=== PATIENT | female | born 1950 | race Caucasian/White ===

== ENCOUNTER → 2017-01-05 | Outpatient (CLI) | payer OTHER ==
--- NOTE | 2017-01-08 09:12 | MM ---
Reason for exam: screening (asymptomatic). Last mammogram was performed 1 year ago. History: Patient is postmenopausal. Benign cyst aspiration of the left breast, 1989. 2 benign cyst aspirations of the right breast. Taking estrogen for 12 years beginning at age 48. Taking progesterone for 12 years beginning at age 48. Physical Findings: A clinical breast exam by your physician is recommended on an annual basis and results should be correlated with mammographic findings. MG Screening Mammo w CAD Bilateral CC and MLO view(s) were taken. Prior study comparison: January 04, 2016, bilateral MG screening mammo w CAD. December 14, 2014, bilateral MG screening mammo w CAD. The breast tissue is heterogeneously dense. This may lower the sensitivity of mammography. Finding: There are stable grouped/clustered calcifications in the left breast. No significant changes in finding since January 04, 2016 and December 14, 2014. ASSESSMENT: Benign, BI-RAD 2 RECOMMENDATION: Routine screening mammogram of both breasts in 1 year.
== END | disposition home or self-care (01) ==
LOC: RADMAMWWP 12:58
PROVIDERS: ATTEND Obstetrics & Gynecology
DX: Z12.31 Encounter for screening mammogram for malignant neoplasm of breast (principal)

== ENCOUNTER → 2017-04-03 | Outpatient (CLI) | payer MEDICARE ==
[2017-04-03 11:09] LABS: ALT 22 U/L (9-52); AST 20 U/L (14-36); Alkaline Phosphatase 90 U/L (38-126); Anion Gap 10 mmol/L; Blood Urea Nitrogen 11 mg/dL (7-17); Calcium 9.2 mg/dL (8.4-10.2); Carbon Dioxide 23 mmol/L (22-30); Chloride 109 mmol/L (98-107); Cholesterol 199 mg/dL (<200); Glucose 109 mg/dL (74-99); HDL Cholesterol 57 mg/dL (40-60); Non-African American GFR(MDRD) >60 (>60 ml/min/1.73 sqM); Potassium 4.1 mmol/L (3.5-5.1); Sodium 142 mmol/L (137-145); Total Bilirubin 0.5 mg/dL (0.2-1.3); Total Protein 7.6 g/dL (6.3-8.2); Triglycerides 213 mg/dL (<150)
== END | disposition home or self-care (01) ==
LOC: LABWHC1 10:22
PROVIDERS: ATTEND Internal Medicine Endocrinology, Diabetes & Metabolism
DX: R73.09 Other abnormal glucose (principal); E03.9 Hypothyroidism, unspecified; E78.2 Mixed hyperlipidemia
CPT/HCPCS: 36415; 80053; 80061; 84439; 84443

== ENCOUNTER → 2017-04-09 | Outpatient (CLI) | payer OTHER ==
--- NOTE | 2017-04-10 01:00 | BD ---
EXAMINATION TYPE: MG DEXA axial skeleton. DATE OF EXAM: 04/09/2017 12:58 PM COMPARISON: NONE CLINICAL HISTORY: 67-year-old female postmenopausal screening Height: 64.7 IN Weight: 175 LBS FRAX RISK QUESTIONS: Alcohol (3 or more units per day): NO Family History (Parent hip fracture): NO Glucocorticoids (More than 3mos): NO (Ex: prednisone, prednisolone, methylprednisolone, dexamethasone, and hydrocortisone). History of Fracture in Adulthood: NO Secondary Osteoporosis: 1. Type 1 Diabetes: NO 2. Hyperthyroidism: NO 3. Menopause before 45: NO AGE 47 4. Malnutrition: NO 5. Chronic liver disease: NO Rheumatoid Arthritis: NO Current Tobacco Use: OCCASIONAL RISK FACTORS HISTORY OF: Smoke tobacco: OCCASIONAL Active: YES Diet low in dairy products/other sources of calcium: YES Postmenopausal woman: AGE 47 Take estrogen and/or progesterone medications: YES How long: SINCE AGE 47 MEDICATIONS: Thyroid Medications: YES Which medication: Synthroid How Lon + YRS Additional Medications: PREMPRO, SYNTHROID, CRESTOR, EXAM MEASUREMENTS: Bone mineral densitometry was performed using the [employer]. Bone mineral density as measured about the Lumbar spine is: ----- L1-L4(G/cm2): 1.299 T Score Values are as follows: ----- L2: 0.0 ----- L3: 1.6 ----- L4: 2.4 ----- L1-L4: 1.0 Bone mineral density BASELINE Bone mineral density about the R hip (g/cm2): 1.000 Bone mineral density about the L hip (g/cm2): 0.973 T Score values are as follows: -----R Neck: -0.3 -----L Neck: -0.5 -----R Total: 0.5 -----L Total: -0.1 Bone mineral density BASELINE IMPRESSION: Normal (Values between +1 and -1 indicate normal bone mass). Consider repeating this study in 5 year s or sooner if there is some new clinical indication. NOTE: T-SCORE=SD OF THE YOUNG ADULT MEAN.
== END | disposition home or self-care (01) ==
LOC: RADBDWWP 12:55
PROVIDERS: ATTEND Obstetrics & Gynecology
DX: N95.1 Menopausal and female climacteric states (principal)
CPT/HCPCS: 77080

== ENCOUNTER → 2018-03-07 | Outpatient (CLI) | payer MEDICARE ==
--- NOTE | 2018-03-08 09:59 | MM ---
Reason for exam: screening (asymptomatic). Last mammogram was performed 1 year and 2 months ago. History: Patient is postmenopausal. Benign cyst aspiration of the left breast, 1989. 2 benign cyst aspirations of the right breast. Taking estrogen for 12 years beginning at age 48. Taking progesterone for 12 years beginning at age 48. Physical Findings: A clinical breast exam by your physician is recommended on an annual basis and results should be correlated with mammographic findings. MG Screening Mammo w CAD Bilateral CC and MLO view(s) were taken. Prior study comparison: January 05, 2017, bilateral MG screening mammo w CAD. January 04, 2016, bilateral MG screening mammo w CAD. The breast tissue is heterogeneously dense. This may lower the sensitivity of mammography. Stable benign calcifications. There is no discrete abnormality. No significant changes when compared with prior studies. ASSESSMENT: Benign, BI-RAD 2 RECOMMENDATION: Routine screening mammogram of both breasts in 1 year.
== END | disposition home or self-care (01) ==
LOC: RADMAMWWP 16:52
PROVIDERS: ATTEND Obstetrics & Gynecology
DX: Z12.31 Encounter for screening mammogram for malignant neoplasm of breast (principal)
CPT/HCPCS: 77067

== ENCOUNTER → 2018-03-27 | Outpatient (CLI) | payer MEDICARE ==
[2018-03-27 11:32] LABS: Anion Gap 13 mmol/L; Blood Urea Nitrogen 15 mg/dL (7-17); Calcium 9.5 mg/dL (8.4-10.2); Carbon Dioxide 23 mmol/L (22-30); Chloride 107 mmol/L (98-107); Cholesterol 193 mg/dL (<200); Glucose 97 mg/dL (74-99); HDL Cholesterol 57 mg/dL (40-60); LDL Cholesterol,Calculated 101 mg/dL (0-99); Potassium 4.5 mmol/L (3.5-5.1); Sodium 143 mmol/L (137-145); Triglycerides 175 mg/dL (<150)
[2018-03-27 11:43] LABS: T4, Free (Free Thyroxine) 1.22 ng/dL (0.78-2.19)
[2018-03-27 18:48] LABS: Hemoglobin A1C 5.6 % (4.0-6.0)
== END ==
LOC: LABWHC1 10:36
PROVIDERS: ATTEND Internal Medicine Endocrinology, Diabetes & Metabolism
DX: E78.2 Mixed hyperlipidemia (principal); E03.9 Hypothyroidism, unspecified
CPT/HCPCS: 36415; 80048; 80061; 82607; 83036; 84439; 84443

== ENCOUNTER → 2019-03-10 | Outpatient (CLI) | payer MEDICARE ==
--- NOTE | 2019-03-12 14:40 | MM ---
Reason for exam: screening (asymptomatic). Last mammogram was performed 1 year ago. History: Patient is postmenopausal. Benign cyst aspiration of the left breast, 1989. 2 benign cyst aspirations of the right breast. Taking estrogen for 12 years beginning at age 48. Taking progesterone for 12 years beginning at age 48. Physical Findings: A clinical breast exam by your physician is recommended on an annual basis and results should be correlated with mammographic findings. MG Screening Mammo w CAD Bilateral CC and MLO view(s) were taken. Prior study comparison: March 07, 2018, bilateral MG screening mammo w CAD. January 05, 2017, bilateral MG screening mammo w CAD. The breast tissue is heterogeneously dense. This may lower the sensitivity of mammography. No significant changes when compared with prior studies. ASSESSMENT: Benign, BI-RAD 2 RECOMMENDATION: Routine screening mammogram of both breasts in 1 year.
== END ==
LOC: RADMAMWWP 11:36
PROVIDERS: ATTEND Obstetrics & Gynecology
DX: Z12.31 Encounter for screening mammogram for malignant neoplasm of breast (principal)
CPT/HCPCS: 77067

== ENCOUNTER → 2019-06-23 | Outpatient (CLI) | payer MEDICARE ==
[2019-06-23 17:49] LABS: Hemoglobin A1C 6.3 % (4.0-6.0)
[2019-06-23 18:15] LABS: African American GFR (CKD) 103.9 (60.0-200.0); Anion Gap 10.6 mmol/L (4.00-12.00); BUN/Creat Ratio 12.86 Ratio (12.00-20.00); Calcium 9.1 mg/dL (8.7-10.3); Carbon Dioxide 22.4 mmol/L (21.6-31.8); LDL Cholesterol,Calculated 111.6 mg/dL (0.0-131.0); Potassium 4.8 mmol/L (3.5-5.5); VLDL Calculation 40.4 mg/dL (5.00-40.00)
[2019-06-23 18:22] LABS: T4, Free (Free Thyroxine) 1.2 ng/dL (0.80-1.80)
== END | disposition home or self-care (01) ==
LOC: LABWHC1 07:33
PROVIDERS: ATTEND Internal Medicine Endocrinology, Diabetes & Metabolism
DX: E78.2 Mixed hyperlipidemia (principal); E03.9 Hypothyroidism, unspecified; R73.03 Prediabetes
CPT/HCPCS: 36415; 80048; 80061; 82607; 83036; 84439; 84443

== ENCOUNTER → 2020-06-30 | Outpatient (CLI) | payer MEDICARE ==
[2020-06-30 19:49] LABS: Chol/HDL Ratio 4.3; LDL Cholesterol,Calculated 108.6 mg/dL (0.0-131.0); VLDL Calculation 56.4 mg/dL (5.00-40.00)
[2020-06-30 19:56] LABS: T4, Free (Free Thyroxine) 1.2 ng/dL (0.80-1.80)
== END | disposition home or self-care (01) ==
LOC: LABWHC1 09:45
PROVIDERS: ATTEND Internal Medicine
DX: E03.9 Hypothyroidism, unspecified (principal); E78.2 Mixed hyperlipidemia; R73.03 Prediabetes
CPT/HCPCS: 36415; 80061; 83036; 84439; 84443

== ENCOUNTER → 2020-08-05 | Outpatient (CLI) | payer MEDICARE ==
--- NOTE | 2020-08-06 12:08 | MM ---
Reason for exam: screening (asymptomatic). Last mammogram was performed 1 year and 5 months ago. History: Patient is postmenopausal. Benign cyst aspiration of the left breast, 1989. 2 benign cyst aspirations of the right breast. Taking estrogen for 12 years beginning at age 48. Taking progesterone for 12 years beginning at age 48. Physical Findings: A clinical breast exam by your physician is recommended on an annual basis and results should be correlated with mammographic findings. MG 3D Screening Mammo W/Cad Bilateral CC and MLO view(s) were taken. Prior study comparison: March 10, 2019, bilateral MG screening mammo w CAD. March 07, 2018, bilateral MG screening mammo w CAD. The breast tissue is heterogeneously dense. This may lower the sensitivity of mammography. Stable benign calcifications. Increasing nodule 12 o'clock right breast anterior third position. This finding is changed when compared with previous exams. ASSESSMENT: Incomplete: need additional imaging evaluation, BI-RAD 0 RECOMMENDATION: Special view mammogram and ultrasound of the right breast. [facility] will attempt to contact patient to return for supplemental views and ultrasound.
== END | disposition home or self-care (01) ==
LOC: RADMAMWWP 14:39
PROVIDERS: ATTEND Obstetrics & Gynecology
DX: Z12.31 Encounter for screening mammogram for malignant neoplasm of breast (principal)
CPT/HCPCS: 77063; 77067

== ENCOUNTER → 2020-08-12 | Outpatient (CLI) | payer MEDICARE ==
--- NOTE | 2020-08-12 12:06 | MM ---
Reason for exam: additional evaluation requested from abnormal screening. Last mammogram was performed less than 1 month ago. History: Patient is postmenopausal. Benign cyst aspiration of the left breast, 1989. 2 benign cyst aspirations of the right breast. Taking estrogen for 12 years beginning at age 48. Taking progesterone for 12 years beginning at age 48. Physical Findings: Nurse Summary: 1cm nodule in the right breast at 11 o'clock (nurse manuelito). MG 3D Work Up W/Cad RT CC and MLO view(s) were taken of the right breast. Prior study comparison: August 05, 2020, bilateral MG 3d screening mammo w/cad. March 10, 2019, bilateral MG screening mammo w CAD. Nodularity upper outer quadrant right breast. Ultrasound recommended. These results were verbally communicated with the patient and result sheet given to the patient on 08/12/20. ASSESSMENT: Incomplete: need additional imaging evaluation, BI-RAD 0 RECOMMENDATION: Ultrasound of the right breast.
--- NOTE | 2020-08-12 12:07 | USB ---
Reason for exam: additional evaluation requested from abnormal screening. History: Patient is postmenopausal. Benign cyst aspiration of the left breast, 1989. 2 benign cyst aspirations of the right breast. Taking estrogen for 12 years beginning at age 48. Taking progesterone for 12 years beginning at age 48. US Breast Workup Limited RT Right limited breast ultrasound including focal area of concern, retroareolar and axilla demonstrates a 1.7 x 1.4 x 1.1cm cystic lesion at 10 o'clock. These results were verbally communicated with the patient and result sheet given to the patient on 08/12/20. ASSESSMENT: Benign, BI-RAD 2 RECOMMENDATION: Return to routine screening mammogram schedule for both breasts. Manage patient on a clinical basis.
== END | disposition home or self-care (01) ==
LOC: RADMAMWWP 08:56
PROVIDERS: ATTEND Obstetrics & Gynecology
DX: R92.8 Other abnormal and inconclusive findings on diagnostic imaging of breast (principal)
CPT/HCPCS: 77065; 76642; G0279; 77061

== ENCOUNTER → 2021-02-23 | Outpatient (CLI) | payer MEDICARE ==
--- NOTE | 2021-02-24 07:24 | US ---
EXAMINATION TYPE: US carotid duplex BILAT DATE OF EXAM: 02/23/2021 COMPARISON: NONE CLINICAL HISTORY: R47.9 Unspecified speech disturbances. EXAM MEASUREMENTS: RIGHT: Peak Systolic Velocity (PSV) cm/sec ----- Right CCA: 99.8 ----- Right ICA: 111.0 ----- Right ECA: 122 ICA/CCA ratio: 1.1 RIGHT: End Diastole cm/sec ----- Right CCA: 26.0 ----- Right ICA: 39.0 ----- Right ECA: 15.9 LEFT: Peak Systolic Velocity (PSV) cm/sec ----- Left CCA: 81.8 ----- Left ICA: 76.8 ----- Left ECA: 91.1 ICA/CCA ratio: 0.93 LEFT: End Diastole cm/sec ----- Left CCA: 23.0 ----- Left ICA: 27.4 ----- Left ECA: 18.7 VERTEBRALS (direction of flow): Right Vertebral: Antegrade Left Vertebral: Antegrade Rhythm: Normal Minimal atherosclerotic changes with no elevated velocities. IMPRESSION: 1. No significant flow-limiting stenosis carotid bifurcations Criteria for Assigning % of Stenosis / Diameter reduction (Estimation based on the indirect measurements of the internal carotid artery velocities (ICA PSV). 1. Normal (no stenosis)=ICA PSV < 125 cm/s: ratio < 2.0: ICA EDV<40 cm/s. 2. Less than 50% stenosis=ICA PSV < 125 cm/s: ratio < 2.0: ICA EDV<40 cm/s. 3. 50 to 69% stenosis=ICA PSV of 125 to 230 cm/s: ration 2.0 ? 4.0: ICA EDV 40-100 cm/s. 4. Greater than 70% stenosis to near occlusion= ICA PSV > 230 cm/s: ratio > 4.0: ICA EDV > 100 cm/s. 5. Near occlusion= ICA PSV velocities may be low or undetectable: variable ratio and ICA EDV. 6. Total occlusion=unable to detect flow.
== END | disposition home or self-care (01) ==
LOC: RADUSWWP 16:15
PROVIDERS: ATTEND Family Medicine
DX: R47.89 Other speech disturbances (principal)
CPT/HCPCS: 93880

== ENCOUNTER 2021-03-01 14:45 | Emergency (ER) | payer MEDICARE ==
--- NOTE | 2021-03-01 16:55 | ED ---
General Adult HPI <Juan JoseFreddy bartono - Last Filed: 03/01/21 16:41> - General Source: patient, RN notes reviewed Mode of arrival: ambulatory Limitations: no limitations <Rick Thayer - Last Filed: 03/01/21 19:29> - General Chief complaint: Upper Respiratory Infection Stated complaint: Covid + jhoan the 4th.fatigue - History of Present Illness Initial comments: 71-year-old female presents to the emergency department with chief complaint of fatigue myalgias and fever. Patient reports she tested positive on 02/27/21. She has been having symptoms since 02/24/21. Patient reports a nonproductive cough with occasional exertional dyspnea but denies any chest pain. (Wilson Kim) Patient is a 71-year-old female that presents to emergency department after testing positive for Covid on 02/27/2021. She notes that she came the emergency department to get undergo monoclonal antibody therapy. She is in no apparent distress or pain while laying in bed during the exam and interview. She denied any shortness of breath headache chest pain nausea vomiting diarrhea constipation fever fatigue chills. (Rick Thayer) - Related Data Allergies Allergy/AdvReac Type Severity Reaction Status Date / Time bee venom protein (honey bee) Allergy Anaphylaxis Verified 03/01/21 16:46 Review of Systems ROS Other: All systems not noted in ROS Statement are negative. <Wilson Kim - Last Filed: 03/01/21 16:41> ROS Other: All systems not noted in ROS Statement are negative. <Rick Thayer - Last Filed: 03/01/21 19:29> ROS Statement: Those systems with pertinent positive or pertinent negative responses have been documented in the HPI. General Exam General appearance: alert, in no apparent distress Head exam: Present: atraumatic, normocephalic, normal inspection Eye exam: Present: normal appearance, PERRL, EOMI. Absent: scleral icterus, conjunctival injection, periorbital swelling ENT exam: Present: normal exam, mucous membranes moist Neck exam: Present: normal inspection. Absent: tenderness, meningismus, lymphadenopathy Respiratory exam: Present: normal lung sounds bilaterally. Absent: respiratory distress, wheezes, rales, rhonchi, stridor Cardiovascular Exam: Present: regular rate, normal rhythm, normal heart sounds. Absent: systolic murmur, diastolic murmur, rubs, gallop, clicks GI/Abdominal exam: Present: soft, normal bowel sounds. Absent: distended, tenderness, guarding, rebound, rigid Extremities exam: Present: normal inspection, full ROM, normal capillary refill. Absent: tenderness, pedal edema, joint swelling, calf tenderness Neurological exam: Present: alert, oriented X3, CN II-XII intact Psychiatric exam: Present: normal affect, normal mood Skin exam: Present: warm, dry, intact, normal color. Absent: rash <Rick Thayer - Last Filed: 03/01/21 19:29> Course Vital Signs 03/01/21 16:41 Temperature 98.6 F Pulse Rate 89 Respiratory 22 Rate Blood Pressure 125/79 Medical Decision Making - Radiology Data Radiology results: report reviewed, image reviewed <Rick Thayer - Last Filed: 03/01/21 19:29> - Medical Decision Making 71-year-old female who is Covid-positive on 02/27/2021 and started symptoms on for 02/24/2021 here for monoclonal antibody therapy Patient brought positive test results with her. Chest x-ray ordered. Monoclonal antibody therapy ordered. 650 mg of Tylenol and 600 mg of Motrin ordered. Patient oxygen saturation was 95-96% on room air. Chest x-ray completed. Case discussed with Dr. Matthews, patient discharged after infusion. (Rick Thayer) - Radiology Data Chest x-ray: COPD with patchy interstitial infiltrates correlate for interstitial pneumonia. (Rick Thayer) Disposition <Wilson Kim - Last Filed: 03/01/21 16:41> Is patient prescribed a controlled substance at d/c from ED?: No Time of Disposition: 19:29 <Rick Thayer - Last Filed: 03/01/21 19:29> Clinical Impression: COVID-19 Disposition: HOME SELF-CARE Condition: Stable Instructions (If sedation given, give patient instructions): Upper Respiratory Infection (ED), Coronavirus Disease 2019 (COVID-19) Additional Instructions: Please return to the Emergency Department if symptoms worsen or any other concerns. Follow-up with primary care this is possible. Per CBC guidelines quarantine for 10-14 days. Take Tylenol Motrin as needed for symptomatically control fever and generalized muscle aches and pains. Increase oral fluid intake. Referrals: Shahzad Kaba MD [Primary Care Provider] - 1-2 days
[2021-03-01] MEDS ORDERED: ACETAMINOPHEN TAB 325 MG TAB PO STA (18:57)
[2021-03-01] MEDS ORDERED: IBUPROFEN 600 MG TAB PO STA (18:57)
--- NOTE | 2021-03-01 19:26 | XR ---
EXAMINATION TYPE: XR chest 2V DATE OF EXAM: 03/01/2021 COMPARISON: NONE TECHNIQUE: PA and lateral views submitted. HISTORY: Cough FINDINGS: Diffuse patchy bilateral infiltrates predominantly interstitial. No pleural effusion or pneumothorax. Heart size normal. Diffuse osteopenia. Arthropathy of the shoulder. Atherosclerotic change aorta. Hy perinflation suggests COPD. IMPRESSION: 1. COPD with patchy interstitial infiltrates correlate for interstitial pneumonia.
[2021-03-01 19:45] VITALS: RESP 18
[2021-03-01] MEDS ORDERED: SODIUM CHLORIDE 0.9% 50 ML IVPB ONE (19:45)
[2021-03-01] MEDS ORDERED: BAMLANIVIMAB (EUA) 700 MG, ETESEVIMAB (EUA) 1,400 MG in SODIUM CHLORIDE 0.9% 50 ML IVPB ONE (19:45)
[2021-03-01 21:31] VITALS: BP 108/56; PULSE 74; TEMP 97.8
== END 2021-03-01 21:31 | disposition home or self-care (01) ==
LOC: EC 14:45
DX: U07.1 COVID-19 (principal)
CPT/HCPCS: 71046; 96365; 99283

== ENCOUNTER → 2021-03-24 | Outpatient (CLI) | payer MEDICARE ==
--- NOTE | 2021-03-24 14:05 | CT ---
EXAMINATION TYPE: CT brain wo con DATE OF EXAM: 03/24/2021 HISTORY: Episode of slurred speech. CT DLP: 1204 mGycm. Automated Exposure Control for Dose Reduction was Utilized. TECHNIQUE: CT scan of the head is performed without contrast. COMPARISON: None. FINDINGS: There is no acute intracranial hemorrhage or midline shift identified. There is mild to m oderate diffuse ventricular and sulcal prominence consistent with diffuse age-related cerebral atroph y. There is mild to moderate low-attenuation in the periventricular white matter consistent with chr onic small vessel ischemic change. The globes are intact and the visualized sinuses are clear. Hyp erostosis frontalis. IMPRESSION: No acute intracranial hemorrhage or midline shift. There is mild to moderate diffuse ce rebral atrophy and chronic small vessel ischemic change noted.
--- NOTE | 2021-03-25 07:43 | ECHOF ---
Referral Reason:R47.9 Unspecified speech disturbances MEASUREMENTS -------- HEIGHT: 165.1 cm WEIGHT: 73.5 kg BP: RVIDd: 2.2 cm (< 3.3) IVSd: 1.0 cm (0.6 - 1.1) LVIDd: 3.3 cm (3.9 - 5.3) LVPWd: 1.1 cm (0.6 - 1.1) IVSs: 1.7 cm LVIDs: 1.7 cm LVPWs: 1.8 cm LAESV Index (A-L): 13.83 ml/m Ao Diam: 2.9 cm (2.0 - 3.7) AV Cusp: 1.6 cm (1.5 - 2.6) LA Diam: 3.1 cm (2.7 - 3.8) MV EXCURSION: 9.839 mm (> 18.000) MV EF SLOPE: 46 mm/s (70 - 150) EPSS: 0.6 cm MV E Vishal: 0.58 m/s MV DecT: 183 ms MV A Vishal: 0.78 m/s MV E/A Ratio: 0.75 RAP: 5.00 mmHg RVSP: 13.38 mmHg FINDINGS -------- Sinus rhythm. This was a technically adequate study. The left ventricular size is normal. Left ventricular wall thickness is normal. Overall left vent ricular systolic function is normal with, an EF between 55 - 60 %. The diastolic filling pattern is normal for the age of the patient 5.39. The right ventricle is normal in size. Normal LA size by volume 22+/-6 ml/m2. The right atrial size is normal. Interatrial and interventricular septum intact. There is mild aortic valve sclerosis. The mitral valve is normal. There is trace mitral regurgitation. The tricuspid valve appears structurally normal. Mild tricuspid regurgitation present. Right vent ricular systolic pressure is normal at < 35 mmHg. There is no pulmonic regurgitation present. The aortic root size is normal. Normal inferior vena cava with normal inspiratory collapse consistent with estimated right atrial pre ssure of 5 mmHg. There is no pericardial effusion. CONCLUSIONS -------- 1. Left ventricular wall thickness is normal. 2. Overall left ventricular systolic function is normal with, an EF between 55 - 60 %. 3. The diastolic filling pattern is normal for the age of the patient 5.39 4. Normal LA size by volume 22+/-6 ml/m2. 5. There is mild aortic valve sclerosis. 6. There is trace mitral regurgitation. 7. Mild tricuspid regurgitation present. 8. There is no pericardial effusion. PHYSICIAN OFFICE SECRETARY: Sophy Srivastava RDCS
== END | disposition home or self-care (01) ==
LOC: RADCTMAIN 13:15
PROVIDERS: ATTEND Family Medicine
DX: I08.3 Combined rheumatic disorders of mitral, aortic and tricuspid valves (principal); G31.9 Degenerative disease of nervous system, unspecified; I67.82 Cerebral ischemia
CPT/HCPCS: 70450; 93306

== ENCOUNTER → 2021-04-06 | Outpatient (CLI) | payer MEDICARE ==
[2021-04-06 23:43] LABS: HCT 43.9 % (37.2-46.3); HGB 13.7 g/dL (12.0-15.0); MCH 32.1 pg (27.0-32.0); MCHC 31.2 g/dL (32.0-37.0); MCV 102.8 fL (80.0-97.0); Mean Platelet Volume 9.8 fL (9.5-12.2); Platelet Count 373 X 10*3/uL (140-440); RBC 4.27 X 10*6/uL (4.10-5.20); RDW 13.7 % (11.5-14.5); WBC 7.35 X 10*3/uL (4.50-10.00)
[2021-04-07 03:38] LABS: African American GFR (CKD) 102.5 (60.0-200.0); Albumin/Globulin Ratio 1.43 (1.60-3.17); BUN/Creat Ratio 14.29 Ratio (12.00-20.00); Chol/HDL Ratio 4.09; Globulin 2.8 g/dL (1.6-3.3); Non-African American GFR(CKD) 88.4 (60.0-200.0); Potassium 4.8 mmol/L (3.5-5.5); Total Bilirubin 0.5 mg/dL (0.2-1.2); Total Protein 6.8 g/dL (6.2-8.2)
== END | disposition home or self-care (01) ==
LOC: LABWHC1 07:46
PROVIDERS: ATTEND Family Medicine
DX: Z00.01 Encounter for general adult medical examination with abnormal findings (principal); E66.3 Overweight; R53.83 Other fatigue
CPT/HCPCS: 36415; 80053; 80061; 85027

== ENCOUNTER → 2021-06-20 | Outpatient (CLI) | payer MEDICARE ==
[2021-06-20 15:21] LABS: Chol/HDL Ratio 3.69; LDL Cholesterol,Calculated 81.2 mg/dL (0.0-131.0); VLDL Calculation 47.8 mg/dL (5.00-40.00)
[2021-06-20 15:30] LABS: T4, Free (Free Thyroxine) 1.3 ng/dL (0.80-1.80)
[2021-06-20 15:59] LABS: Hemoglobin A1C 5.7 % (4.0-6.0)
== END | disposition home or self-care (01) ==
LOC: LABWHC1 08:41
PROVIDERS: ATTEND Internal Medicine
DX: R73.03 Prediabetes (principal); E03.9 Hypothyroidism, unspecified; D51.9 Vitamin B12 deficiency anemia, unspecified; E55.9 Vitamin D deficiency, unspecified; E78.2 Mixed hyperlipidemia
CPT/HCPCS: 36415; 80061; 82306; 82607; 83036; 84439; 84443

== ENCOUNTER 2021-06-23 14:58 | Inpatient (IN) | payer MEDICARE ==
[2021-06-23 15:22] LABS: Basophils % (A) 0 %; Eosinophils # (A) 0.2 k/uL (0-0.7); Eosinophils % (A) 2 %; HCT 41.5 % (34.0-46.0); HGB 14.2 gm/dL (11.4-16.0); Lymphocytes % (A) 12 %; MCH 34.3 pg (25.0-35.0); MCHC 34.2 g/dL (31.0-37.0); MCV 100.3 fL (80.0-100.0); Mean Platelet Volume 7.3; Monocytes # (A) 0.5 k/uL (0-1.0); Monocytes % (A) 6 %; Neutrophils # (A) 6.6 k/uL (1.3-7.7); Neutrophils % (A) 79 %; Platelet Count 242 k/uL (150-450); RBC 4.14 m/uL (3.80-5.40); WBC 8.4 k/uL (3.8-10.6)
--- NOTE | 2021-06-23 15:29 | CT ---
EXAMINATION TYPE: CT brain wo con for TPA DATE OF EXAM: 06/23/2021 COMPARISON: 03/24/2021 INDICATION: weakness and slurred speech. DLP: 1111.4 mGycm, Automated exposure control for dose reduction was used. CONTRAST: None CT of the brain is performed utilizing 3 mm thick sections through the posterior fossa and 3 mm thick sections through the remaining calvarium. Study is performed within 24 hours of arrival to the hosp ital. No abnormal hyperdensity is present to suggest an acute intracranial hemorrhage. No mass lesion is evident. No acute infarcts are evident. Minimal ischemic type white matter changes may be present. Ventricles and sulci are appropriate for the patient age. Paranasal sinuses and mastoid air cells within the [id number] are clear. Hyperostosis frontalis internus is present, a normal variant. IMPRESSIONS: 1. No acute intracranial process radiographically. MRI may be more sensitive for early ischemic lenka nges
[2021-06-23 15:31] LABS: Partial Thromboplastin Time 22.2 sec (22.0-30.0); Prothrombin Time 10.3 sec (9.0-12.0)
[2021-06-23 15:33] LABS: ALT 14 U/L (4-34); AST 22 U/L (14-36); African American GFR (CKD) >90 (>60 ml/min/1.73 sqM); Albumin 3.6 g/dL (3.5-5.0); Alkaline Phosphatase 87 U/L (38-126); Anion Gap 9 mmol/L; Blood Urea Nitrogen 12 mg/dL (7-17); Calcium 8.8 mg/dL (8.4-10.2); Carbon Dioxide 20 mmol/L (22-30); Chloride 109 mmol/L (98-107); Glucose 172 mg/dL (74-99); Non-African American GFR(CKD) >90 (>60 ml/min/1.73 sqM); Potassium 3.6 mmol/L (3.5-5.1); Sodium 138 mmol/L (137-145); Total Bilirubin 0.2 mg/dL (0.2-1.3); Total Protein 6.6 g/dL (6.3-8.2)
--- NOTE | 2021-06-23 16:09 | CT ---
EXAMINATION TYPE: CODE STROKE: CTA head neck DATE OF EXAM: 06/23/2021 HISTORY: aphasia COMPARISON: CT DLP: 443.7 mGycm. Automated Exposure Control for Dose Reduction was Utilized. TECHNIQUE: CTA scan of the neck is performed with IV Contrast, patient injected with 60 mL of Isovue 370, axial images are obtained, coronal and sagittal reformatted images are reviewed. Three-D recons tructed images are created on an independent workstation and reviewed. Source images are reviewed. FINDINGS: Carotid/Vascular Structures: There is a three-vessel arch. Vertebral arteries are codominant. Interna l carotid arteries and vertebral arteries extend to the skull base. At the carotid bifurcations no si gnificant stenosis is evident. NASCET criteria was used in interpretation of this exam? Aortic arch comments: The left common carotid artery potentially may have a common origin with the in nominate. This is in close approximation. Note is also made of apparent narrowing at the origin of th e left subclavian artery. Cervical of Don: Vertebral basilar system appears normal. Posterior cerebral vasculature is unrema rkable. Internal carotid arteries bifurcate normally into A1 and M1 segments. A2 segments are normal. The anterior communicating artery is patent. Left Posterior communicating artery is absent. Right po sterior communicating artery is patent. Other: Degenerative disc changes present throughout the cervical spine. Mild kyphosis is present whic h may be positional. Posterior endplate spurring is present C5-6, C6-7. This may be contributing to s carrie canal stenosis. Congenitally short pedicles are likely present. There appear to be severe jaime inal stenosis present bilaterally. This could be further evaluated with MRI. IMPRESSION: 1. No flow-limiting stenosis bilateral carotid bifurcations. 2. Normal [place]
[2021-06-23] MEDS ORDERED: TICAGRELOR 90 MG TAB PO STA (18:03)
[2021-06-23] MEDS ORDERED: ASPIRIN 325 MG TAB PO STA (18:03)
--- NOTE | 2021-06-23 18:03 | ED ---
Neuro HPI - General Chief Complaint: Neuro Symptoms/Deficit Stated Complaint: Poss stroke Time Seen by Provider: 06/23/21 15:04 Source: EMS Mode of arrival: EMS Limitations: no limitations - History of Present Illness Is the patient presenting with stroke symptoms?: Yes Last Known Well Date: 06/23/21 Last Known Well Time: 15:00 Initial Comments: Patient presents to the emerge department with difficulty speaking. She has no weakness in the extremities. She had no loss of conscious. Symptoms began just a few minutes prior to arrival. She has no lightheadedness. She has no chest pain. She has no back pain. She has no belly pain. She has no headache. She has no neck pain or stiffness. - Related Data Home Medications: Home Medications Medication Instructions Recorded Confirmed Cetirizine HCl [Zyrtec] 10 mg PO DAILY PRN 06/23/21 06/23/21 EPINEPHrine (Auto Inject) [Epipen] 0.3 mg IM ONCE PRN 06/23/21 06/23/21 Estrogen,Con/M-Progest Acet 1 tab PO DAILY 06/23/21 06/23/21 [Prempro 0.625-5 mg Tablet] Levothyroxine Sodium [Synthroid] 100 mcg PO SUMOTUTHFR 06/23/21 06/23/21 Levothyroxine Sodium [Synthroid] 150 mcg PO WESA 06/23/21 06/23/21 Rosuvastatin Calcium [Crestor] 5 mg PO DAILY 06/23/21 06/23/21 Vit C/E/Zn/Coppr/Lutein/Zeaxan 1 cap PO DAILY 06/23/21 06/23/21 [Preservision Areds 2 Softgel] Allergies/Adverse Reactions: Allergies Allergy/AdvReac Type Severity Reaction Status Date / Time bee venom protein (honey bee) Allergy Anaphylaxis Verified 06/23/21 15:55 Review of Systems ROS Statement: Those systems with pertinent positive or pertinent negative responses have been documented in the HPI. ROS Other: All systems not noted in ROS Statement are negative. General Exam Limitations: no limitations General appearance: alert, in no apparent distress Head exam: Present: atraumatic, normocephalic, normal inspection Eye exam: Present: normal appearance, PERRL, EOMI. Absent: scleral icterus, conjunctival injection, periorbital swelling ENT exam: Present: normal exam, mucous membranes moist Neck exam: Present: normal inspection. Absent: tenderness, meningismus, lymphadenopathy Respiratory exam: Present: normal lung sounds bilaterally. Absent: respiratory distress, wheezes, rales, rhonchi, stridor Cardiovascular Exam: Present: regular rate, normal rhythm, normal heart sounds. Absent: systolic murmur, diastolic murmur, rubs, gallop, clicks GI/Abdominal exam: Present: soft, normal bowel sounds. Absent: distended, tenderness, guarding, rebound, rigid Extremities exam: Present: normal inspection, full ROM, normal capillary refill. Absent: tenderness, pedal edema, joint swelling, calf tenderness Back exam: Present: normal inspection Neurological exam: Present: alert, oriented X3, CN II-XII intact, other (Positive for mild aphasia and dysarthria) Psychiatric exam: Present: normal affect, normal mood Skin exam: Present: warm, dry, intact, normal color. Absent: rash Stroke MDM - Lab Data Result diagrams: 06/23/21 15:15 06/23/21 15:15 Lab Results 06/23/21 06/23/21 06/23/21 Range/Units 15:15 15:15 15:15 WBC 8.4 (3.8-10.6) k/uL RBC 4.14 (3.80-5.40) m/uL Hgb 14.2 (11.4-16.0) gm/dL Hct 41.5 (34.0-46.0) % MCV 100.3 H (80.0-100.0) fL MCH 34.3 (25.0-35.0) pg MCHC 34.2 (31.0-37.0) g/dL RDW 13.0 (11.5-15.5) % Plt Count 242 (150-450) k/uL MPV 7.3 Neutrophils % 79 % Lymphocytes % 12 % Monocytes % 6 % Eosinophils % 2 % Basophils % 0 % Neutrophils # 6.6 (1.3-7.7) k/uL Lymphocytes # 1.0 (1.0-4.8) k/uL Monocytes # 0.5 (0-1.0) k/uL Eosinophils # 0.2 (0-0.7) k/uL Basophils # 0.0 (0-0.2) k/uL PT 10.3 (9.0-12.0) sec INR 1.0 (<1.2) APTT 22.2 (22.0-30.0) sec Sodium 138 (137-145) mmol/L Potassium 3.6 (3.5-5.1) mmol/L Chloride 109 H (98-107) mmol/L Carbon Dioxide 20 L (22-30) mmol/L Anion Gap 9 mmol/L BUN 12 (7-17) mg/dL Creatinine 0.55 (0.52-1.04) mg/dL Est GFR (CKD-EPI)AfAm >90 (>60 ml/min/1.73 sqM) Est GFR (CKD-EPI)NonAf >90 (>60 ml/min/1.73 sqM) Glucose 172 H (74-99) mg/dL Calcium 8.8 (8.4-10.2) mg/dL Total Bilirubin 0.2 (0.2-1.3) mg/dL AST 22 (14-36) U/L ALT 14 (4-34) U/L Alkaline Phosphatase 87 (38-126) U/L Troponin I (0.000-0.034) ng/mL Total Protein 6.6 (6.3-8.2) g/dL Albumin 3.6 (3.5-5.0) g/dL 06/23/21 Range/Units 15:15 WBC (3.8-10.6) k/uL RBC (3.80-5.40) m/uL Hgb (11.4-16.0) gm/dL Hct (34.0-46.0) % MCV (80.0-100.0) fL MCH (25.0-35.0) pg MCHC (31.0-37.0) g/dL RDW (11.5-15.5) % Plt Count (150-450) k/uL MPV Neutrophils % % Lymphocytes % % Monocytes % % Eosinophils % % Basophils % % Neutrophils # (1.3-7.7) k/uL Lymphocytes # (1.0-4.8) k/uL Monocytes # (0-1.0) k/uL Eosinophils # (0-0.7) k/uL Basophils # (0-0.2) k/uL PT (9.0-12.0) sec INR (<1.2) APTT (22.0-30.0) sec Sodium (137-145) mmol/L Potassium (3.5-5.1) mmol/L Chloride (98-107) mmol/L Carbon Dioxide (22-30) mmol/L Anion Gap mmol/L BUN (7-17) mg/dL Creatinine (0.52-1.04) mg/dL Est GFR (CKD-EPI)AfAm (>60 ml/min/1.73 sqM) Est GFR (CKD-EPI)NonAf (>60 ml/min/1.73 sqM) Glucose (74-99) mg/dL Calcium (8.4-10.2) mg/dL Total Bilirubin (0.2-1.3) mg/dL AST (14-36) U/L ALT (4-34) U/L Alkaline Phosphatase (38-126) U/L Troponin I <0.012 (0.000-0.034) ng/mL Total Protein (6.3-8.2) g/dL Albumin (3.5-5.0) g/dL - NIH Stroke Scale 9. Best Language: (1) mild/moderate aphasia 10. Dysarthria: (1) mild/moderate dysarthria - Core Measures AMI Core Measures Followed: Yes - Medical Decision Making Patient presents with aphasia and dysarthria. Her symptoms improved dramatically in a short period of time. I did consult neurology and the neuro interventionalists. Her CT head as well as her CTA are unremarkable. After discussing the case with Dr. Adams it does not appear that her symptoms are an indication for TPA. I have ordered aspirin [place] to. Patient will be admitted to the hospital. Past Medical History Past Medical History: CVA/TIA, Hyperlipidemia, Thyroid Disorder Additional Past Medical History / Comment(s): covid 4/4 History of Any Multi-Drug Resistant Organisms: None Reported Past Surgical History: Tonsillectomy, Tubal Ligation Past Psychological History: No Psychological Hx Reported Smoking Status: Current every day smoker Past Alcohol Use History: Occasional Past Drug Use History: None Reported Course Vital Signs 06/23/21 06/23/21 06/23/21 15:00 15:05 15:30 Temperature 98.1 F 98.1 F Pulse Rate 81 77 77 Respiratory 18 18 18 Rate Blood Pressure 136/78 136/85 142/75 O2 Sat by Pulse 95 98 98 Oximetry 06/23/21 06/23/21 06/23/21 15:45 16:00 17:00 Temperature Pulse Rate 75 75 81 Respiratory 18 18 18 Rate Blood Pressure 145/76 146/90 124/80 O2 Sat by Pulse 98 98 98 Oximetry Disposition Clinical Impression: Cerebrovascular accident (CVA) Disposition: ADMITTED IP TO THIS HOSP Condition: Fair Is patient prescribed a controlled substance at d/c from ED?: No Referrals: Shahzad Kaba MD [Primary Care Provider] - 1-2 days
[2021-06-23] MEDS ORDERED: NALOXONE 0.4 MG/ML 1 ML VIAL IV PRN (18:06)
[2021-06-23] MEDS ORDERED: LORATADINE 10 MG TAB PO PRN (18:08)
--- NOTE | 2021-06-23 18:13 | ED ---
Medical Decision Making - Lab Data Result diagrams: 06/23/21 15:15 06/23/21 15:15 Lab Results 06/23/21 06/23/21 06/23/21 Range/Units 15:15 15:15 15:15 WBC 8.4 (3.8-10.6) k/uL RBC 4.14 (3.80-5.40) m/uL Hgb 14.2 (11.4-16.0) gm/dL Hct 41.5 (34.0-46.0) % MCV 100.3 H (80.0-100.0) fL MCH 34.3 (25.0-35.0) pg MCHC 34.2 (31.0-37.0) g/dL RDW 13.0 (11.5-15.5) % Plt Count 242 (150-450) k/uL MPV 7.3 Neutrophils % 79 % Lymphocytes % 12 % Monocytes % 6 % Eosinophils % 2 % Basophils % 0 % Neutrophils # 6.6 (1.3-7.7) k/uL Lymphocytes # 1.0 (1.0-4.8) k/uL Monocytes # 0.5 (0-1.0) k/uL Eosinophils # 0.2 (0-0.7) k/uL Basophils # 0.0 (0-0.2) k/uL PT 10.3 (9.0-12.0) sec INR 1.0 (<1.2) APTT 22.2 (22.0-30.0) sec Sodium 138 (137-145) mmol/L Potassium 3.6 (3.5-5.1) mmol/L Chloride 109 H (98-107) mmol/L Carbon Dioxide 20 L (22-30) mmol/L Anion Gap 9 mmol/L BUN 12 (7-17) mg/dL Creatinine 0.55 (0.52-1.04) mg/dL Est GFR (CKD-EPI)AfAm >90 (>60 ml/min/1.73 sqM) Est GFR (CKD-EPI)NonAf >90 (>60 ml/min/1.73 sqM) Glucose 172 H (74-99) mg/dL Calcium 8.8 (8.4-10.2) mg/dL Total Bilirubin 0.2 (0.2-1.3) mg/dL AST 22 (14-36) U/L ALT 14 (4-34) U/L Alkaline Phosphatase 87 (38-126) U/L Troponin I (0.000-0.034) ng/mL Total Protein 6.6 (6.3-8.2) g/dL Albumin 3.6 (3.5-5.0) g/dL 06/23/21 Range/Units 15:15 WBC (3.8-10.6) k/uL RBC (3.80-5.40) m/uL Hgb (11.4-16.0) gm/dL Hct (34.0-46.0) % MCV (80.0-100.0) fL MCH (25.0-35.0) pg MCHC (31.0-37.0) g/dL RDW (11.5-15.5) % Plt Count (150-450) k/uL MPV Neutrophils % % Lymphocytes % % Monocytes % % Eosinophils % % Basophils % % Neutrophils # (1.3-7.7) k/uL Lymphocytes # (1.0-4.8) k/uL Monocytes # (0-1.0) k/uL Eosinophils # (0-0.7) k/uL Basophils # (0-0.2) k/uL PT (9.0-12.0) sec INR (<1.2) APTT (22.0-30.0) sec Sodium (137-145) mmol/L Potassium (3.5-5.1) mmol/L Chloride (98-107) mmol/L Carbon Dioxide (22-30) mmol/L Anion Gap mmol/L BUN (7-17) mg/dL Creatinine (0.52-1.04) mg/dL Est GFR (CKD-EPI)AfAm (>60 ml/min/1.73 sqM) Est GFR (CKD-EPI)NonAf (>60 ml/min/1.73 sqM) Glucose (74-99) mg/dL Calcium (8.4-10.2) mg/dL Total Bilirubin (0.2-1.3) mg/dL AST (14-36) U/L ALT (4-34) U/L Alkaline Phosphatase (38-126) U/L Troponin I <0.012 (0.000-0.034) ng/mL Total Protein (6.3-8.2) g/dL Albumin (3.5-5.0) g/dL 06/23/21 18:13 Twelve-lead EKG shows ventricular rate 83 bpm, normal CA interval and QRS complexes, no ST elevation or depression, interpreted by me as normal sinus rhythm. Disposition Clinical Impression: Cerebrovascular accident (CVA) Disposition: ADMITTED IP TO THIS HOSP Condition: Fair Referrals: Shahzad Kaba MD [Primary Care Provider] - 1-2 days
--- NOTE | 2021-06-23 18:47 | XR ---
EXAMINATION TYPE: XR chest 2V DATE OF EXAM: 06/23/2021 COMPARISON: 03/01/2021 HISTORY: Altered mental status TECHNIQUE: Frontal and lateral views of the chest are obtained. FINDINGS: There is bibasilar chronic mild interstitial opacities, less pronounced compared to prior study. No significant pleural effusion, or pneumothorax seen. The cardiac silhouette size is within normal limits. The osseous structures are intact. IMPRESSION: Chronic mild interstitial opacities
--- NOTE | 2021-06-23 20:37 | P.CNNES ---
History of Present Illness Consult date: 06/23/21 Requesting physician: Juliano Ramirez Reason for Consult: Stroke History of Present Illness: Patient is a 71-year-old female came to the hospital by ambulance today at 2:58 PM. Per EMS flow sheet, when they arrived, patient was sitting in chair outside having some speech problems. Patient was outside painting a chair when it began. Patient states at around 2:15 PM when she turned around and all of a sudden she couldn't talk. She has garbled speech, no one could understand her speech at all. She also has perioral numbness, which she describes as as if her lips were "fat". She denies any weakness or numbness of the extremities. Her significant other noticed some gait imbalance. There was no facial droop, visua l symptoms. On a scale from 1-10, patient believes her symptoms were down as far as 1-2 at onset. Now the symptoms have improved all the way up to 8, whereas 10 is normal. Vitals at the scene were blood pressure 146/113, pulse rate 98, saturation 96%. Vital signs on arrival blood pressure 136/78, pulse rate 81, temperature 98.1. Patient's blood test shows normal CBC with elevated MCV 100.3. PT/PTT normal, Chem-[address] head showed no acute process. CTA of head and neck showed no flow-limiting stenosis bilateral carotid bifurcations. Normal [place]. EKG shows normal sinus rhythm. Rightward axis deviation. Chest x- ray showed chronic mild interstitial opacities. Patient's home medications include Synthroid, Prempro 0.625/5 mg. and aspirin 81 mg daily which she has been taking since her last TIA in January 2021. Also on Crestor. Patient has history of a TIA-type episode on 07/11/2020, when she had an episode of confusion, which lasted for about 10 minutes and resolved. She did not seek medical attention. In January 2021, she had an episode of garbled speech, that lasted for 5 minutes and then resolved. She saw her primary physician in her office, who recommended computed tomography scan of the head, carotid and echo and recommended to start aspirin 81 mg daily. Patient has history of tobacco use of one pack per day for 30 years, cutback to half pack per day in the last 1 year. In all these years she did quit for couple years only. Patient denies diabetes or hypertension or any alcohol use. She does have macular degeneration. Review of Systems As above in detail. All other review of systems unremarkable. Denies any chest pain shortness of breath. She does have smoker's cough. Denies any abdominal pain nausea vomiting. Denies any weight loss. Denies any visual symptoms except for macular degeneration. She is hard of hearing. No fever or chills, no rash. No loss of control of urine. Past Medical History Past Medical History: CVA/TIA, Hyperlipidemia, Thyroid Disorder Additional Past Medical History / Comment(s): covid / History of Any Multi-Drug Resistant Organisms: None Reported Past Surgical History: Tonsillectomy, Tubal Ligation Past Psychological History: No Psychological Hx Reported Smoking Status: Current every day smoker Past Alcohol Use History: Occasional Past Drug Use History: None Reported Medications and Allergies Home Medications Medication Instructions Recorded Confirmed Type Cetirizine HCl [Zyrtec] 10 mg PO DAILY PRN 06/23/21 06/23/21 History EPINEPHrine (Auto Inject) [Epipen] 0.3 mg IM ONCE PRN 06/23/21 06/23/21 History Estrogen,Con/M-Progest Acet 1 tab PO DAILY 06/23/21 06/23/21 History [Prempro 0.625-5 mg Tablet] Levothyroxine Sodium [Synthroid] 100 mcg PO SUMOTUTHFR 06/23/21 06/23/21 History Levothyroxine Sodium [Synthroid] 150 mcg PO WESA 06/23/21 06/23/21 History Rosuvastatin Calcium [Crestor] 5 mg PO DAILY 06/23/21 06/23/21 History Vit C/E/Zn/Coppr/Lutein/Zeaxan 1 cap PO DAILY 06/23/21 06/23/21 History [Preservision Areds 2 Softgel] Allergies Allergy/AdvReac Type Severity Reaction Status Date / Time bee venom protein (honey bee) Allergy Anaphylaxis Verified 06/23/21 15:55 Physical Examination - Vital Signs Vital Signs: Vital Signs Temp Pulse Pulse Resp BP BP Pulse Ox 06/23/21 19:10 98 F 71 16 127/71 93 L 06/23/21 19:00 98.1 F 66 16 137/69 98 06/23/21 18:00 66 16 137/69 98 06/23/21 17:00 81 18 124/80 98 06/23/21 16:00 75 18 146/90 98 06/23/21 15:45 75 18 145/76 98 06/23/21 15:30 77 18 142/75 98 06/23/21 15:05 98.1 F 77 18 136/85 98 06/23/21 15:00 98.1 F 81 18 136/78 95 Intake and Output 06/23/21 06/23/21 06/23/21 06:59 14:59 22:59 Other: Weight 74.389 kg Patient is an elderly female, in no acute distress. Patient is alert awake oriented to time place and person. Speech is very mildly dysarthric and language functions are normal. No aphasia. Attention, concentration and fund of knowledge is adequate. Patient can name and repeat very well. Comprehension is intact. On cranial examination, pupils are equal, round and reacting to light, visual pierce are full on confrontation, with no neglect on double simultaneous stimulation, extraocular muscles are intact with no nystagmus. Face is sym metric, tongue protrudes to the midline. Palatal elevation and sensation normal, hearing and shoulder shrug normal, facial sensation normal. Shoulder shrug normal. On muscle strength testing, there is no pronator drift and the strength is normal in arms and legs distally and proximally. Deep tendon reflexes are 2 at the biceps, 1 brachioradialis, 2 at the knees 1+ ankles and plantars downgoing. Sensory to touch is equal with no neglect. Cerebellar function showed no ataxia for [id number] testing. No dysdiadochokinesia. Tone and bulk of muscles normal. Gait appears steady. On general examination, there is no carotid bruit or murmur, S1-S2 audible. Abdomen is soft nontender. Chest is clear. Peripheral pulses are present. No edema. Results - Laboratory Findings CBC and BMP: 06/23/21 15:15 06/23/21 15:15 Abnormal Lab Findings: Abnormal Labs 06/23/21 06/23/21 15:15 15:15 MCV 100.3 H Chloride 109 H Carbon Dioxide 20 L Glucose 172 H Assessment and Plan Assessment: * Probable stroke versus TIA manifesting with severe slurred speech and perioral numbness and slight imbalance. Her current NIH stroke scale is 1, with minimal slurring. * Previous history of TIA 2 * Borderline blood pressure. * Tobacco use Plan: * Patient has failed aspirin. Patient has been started on Brilinta and aspirin regimen. * Patient will undergo MRI of the brain to evaluate for an acute stroke. * Patient had a 2-D echo performed 03/25/2021, which revealed normal left ventricular wall thickness, EF is 55-60%. Normal left atrial size. Mild aortic valve sclerosis. As the 2-D echo showed no significant abnormalities, and with recurrent stroke/TIA, we will check a SHIRA to rule out embolic source. * CTA of head and neck showed no significant stenosis. * Hemoglobin A1c 5.7 * Lipid panel with cholesterol 177, LDL 81, HDL 48 and triglycerides 239. Continue Crestor. * Patient has vitamin B12 deficiency with B12 145. Be started on B12 injections. * Telemetry monitoring. * Permissive hypertension. * Continue neuro checks. * Strongly recommended tobacco cessation. * Dr. Anil Katz Will follow up patient in the morning. * Discussed with patient's family in detail.
[2021-06-24] MEDS ORDERED: CYANOCOBALAMIN 1,000 MCG/ML 1 ML VIAL IM ONE (00:12)
[2021-06-24] MEDS ORDERED: ATORVASTATIN 80 MG TAB PO SCH (00:15)
--- NOTE | 2021-06-24 00:16 | P.HPIM ---
History of Present Illness H&P Date: 06/23/21 Patient is a 71-year-old female with a PMH of hyperlipidemia, tobacco abuse, hypothyroidism, hx of COVID pneumonia (02/2021) and history of CVA and TIAs (last TIA in January 2021, with speech impairment lasting 5 minutes and subsequent resolution) who presented to the emergency room with complaints of speech impairment. Patient reports that she was in her usual state of health until about 2 PM as she was sitting in her chair at home when she suddenly noticed that she was unable to speak. She reports that initially she was not able to talk at all, and subsequently was able to talk but that her speech was garbled. She reports that her symptoms gradually improved, and family at the bedside repo rts that she had come back to her baseline by around 8 PM. The family members at the bedside reported that the patient's gait appeared to be abnormal shortly after onset of symptoms and subsequently improved. Patient reports no additional symptoms. She denied experiencing weakness, numbness, tingling. Also denied facial asymmetry, headaches, neck pain, visual disturbances, lightheadedness. Denied cough, fever, chills, chest pain. Also denied nausea, vomiting, abdominal pain, diarrhea. At time of interview, the patient reported feeling back to her baseline. The case was discussed with the neuro intensive is by the emergency room physician and the patient was deemed not a candidate for TPA since her symptoms had improved quickly. CT brain was unremarkable with angiogram also unremarkable. EKG revealed normal sinus rhythm at 83 bpm with no acute ST/T-wave changes noted as reviewed by me. Chest x-ray revealed chronic mild interstitial opacities. Review of systems: Pertinent positives and negatives as discussed in HPI, a complete review of systems was performed and all other systems are negative. Physical examination: General: non toxic, no distress, appears at stated age, normal weight Derm: no unusual rashes/lesions no unusual ecchymoses, warm, dry Head: atraumatic, normocephalic, symmetric Eyes: EOMI, no lid lag, anicteric sclera, pupils equal round reactive to light ENT: Nose and ears atraumatic, no thrush, no pharyngeal erythema Neck: No thyromegaly, no cervical lymphadenopathy, trachea midline, supple Mouth: no lip lesion, mucus membranes moist Cardiovascular: S1S2 reg, no murmur, positive posterior tibial pulse bilateral, no edema, capillary refill less than 2 seconds Lungs: CTA bilateral, no rhonchi, no rales , no accessory muscle use Abdominal: soft, nontender to palpation, no guarding, no appreciable organomegaly, normal bowel sounds Ext: no gross muscle atrophy, muscle strength 5 out of 5 in all 4 extremities grossly, no contractures, Neuro: CN II-XI grossly intact, light touch intact all 4 extremities, finger to nose within normal limits, no pronator drift or outstretched hand tremor Psych: Alert, oriented, appropriate affect Assessment/plan Aphasia and dysarthria, suspected TIA -Neurology recommendations appreciated -Continue with aspirin and Brilinta -MRI brain, SHIRA ordered -Continue Lipitor -Fall precautions -Permissive hypertension -Cardiac monitoring -PT consult Vitamin B12 deficiency -Level 145 on 06/20 -Start B12 injections Hyperglycemia -Hemoglobin A1c 5.7 on 06/20 Chronic conditions: Hypothyroidism -Continue home meds DVT prophylaxis -Heparin subq The patient is admitted with an anticipated greater than 2 midnight stay for evaluation of TIA CODE STATUS: Full Code Discussed with: patient Anticipated discharge date: 2-[address]: Home Past Medical History Past Medical History: CVA/TIA, Hyperlipidemia, Thyroid Disorder Additional Past Medical History / Comment(s): covid 4/4 History of Any Multi-Drug Resistant Organisms: None Reported Past Surgical History: Tonsillectomy, Tubal Ligation Past Anesthesia/Blood Transfusion Reactions: No Reported Reaction Past Psychological History: No Psychological Hx Reported Smoking Status: Current every day smoker Past Alcohol Use History: Occasional Past Drug Use History: None Reported - Past Family History Mother Family Medical History: CVA/TIA, Hyperlipidemia, Hypertension Father Family Medical History: COPD, Hyperlipidemia, Hypertension Medications and Allergies Home Medications Medication Instructions Recorded Confirmed Type Cetirizine HCl [Zyrtec] 10 mg PO DAILY PRN 06/23/21 06/23/21 History EPINEPHrine (Auto Inject) [Epipen] 0.3 mg IM ONCE PRN 06/23/21 06/23/21 History Estrogen,Con/M-Progest Acet 1 tab PO DAILY 06/23/21 06/23/21 History [Prempro 0.625-5 mg Tablet] Levothyroxine Sodium [Synthroid] 100 mcg PO SUMOTUTHFR 06/23/21 06/23/21 History Levothyroxine Sodium [Synthroid] 150 mcg PO WESA 06/23/21 06/23/21 History Rosuvastatin Calcium [Crestor] 5 mg PO DAILY 06/23/21 06/23/21 History Vit C/E/Zn/Coppr/Lutein/Zeaxan 1 cap PO DAILY 06/23/21 06/23/21 History [Preservision Areds 2 Softgel] Allergies Allergy/AdvReac Type Severity Reaction Status Date / Time bee venom protein (honey bee) Allergy Anaphylaxis Verified 06/23/21 15:55 Physical Exam Vitals: Vital Signs Temp Pulse Pulse Resp BP BP Pulse Ox 06/23/21 20:00 16 06/23/21 19:10 98 F 71 16 127/71 93 L 06/23/21 19:00 98.1 F 66 16 137/69 98 06/23/21 18:00 66 16 137/69 98 06/23/21 17:00 81 18 124/80 98 06/23/21 16:00 75 18 146/90 98 06/23/21 15:45 75 18 145/76 98 06/23/21 15:30 77 18 142/75 98 06/23/21 15:05 98.1 F 77 18 136/85 98 06/23/21 15:00 98.1 F 81 18 136/78 95 Intake and Output 06/23/21 06/23/21 06/24/21 14:59 22:59 06:59 Other: Weight 74.389 kg Results CBC & Chem 7: 06/23/21 15:15 06/23/21 15:15 Labs: Abnormal Lab Results - Last 24 Hours (Table) 06/23/21 06/23/21 Range/Units 15:15 15:15 MCV 100.3 H (80.0-100.0) fL Chloride 109 H (98-107) mmol/L Carbon Dioxide 20 L (22-30) mmol/L Glucose 172 H (74-99) mg/dL Thrombosis Risk Factor Assmnt - Choose All That Apply Any of the Below Risk Factors Present?: Yes Each Factor Represents 1 point: Obesity (BMI >25) Each Risk Factor Represents 2 Points: Age 61-74 years Other congenital or acquired thrombophilia - If yes, enter type in comment: No Thrombosis Risk Factor Assessment Total Risk Factor Score: 3 Thrombosis Risk Factor Assessment Level: Moderate Risk
[2021-06-24] MEDS ORDERED: LEVOTHYROXINE 100 MCG TAB PO SCH (06:30)
[2021-06-24 07:51] VITALS: TEMP 98
[2021-06-24] MEDS: HEPARIN SODIUM,PORCINE/PF 5,000 UNIT/0.5 ML SYRINGE SQ SCH ×2 (08:48→15:30)
[2021-06-24] MEDS ORDERED: CYANOCOBALAMIN 1,000 MCG/ML 1 ML VIAL IM SCH (09:00)
[2021-06-24] MEDS ORDERED: ASPIRIN 81 MG PO SCH (09:00)
[2021-06-24] MEDS ORDERED: ATORVASTATIN 10 MG TAB PO SCH (09:00)
[2021-06-24] MEDS ORDERED: VIT A,C & E-LUTEIN-MINERALS 1 EACH TAB PO SCH (09:00)
[2021-06-24] MEDS ORDERED: TICAGRELOR 90 MG TAB PO SCH (09:00)
--- NOTE | 2021-06-24 10:28 | P.CRDCN ---
History of Present Illness History of present illness: Patient is a 71-year-old female with past medical history of chronic nicotine dependence, TIA/CVA previously, Hyperlipidemia, hypothyroidism. She does not follow with a retirement plan counselor. We're being consulted for SHIRA requested by neurology. Patient presented to the hospital on 06/23/2021 due to concerns for TIA/CVA. Patient was sitting in chair outside having some speech problems. She states that around 2:15pm when she turned around and all of a sudden she couldn't talk. She has garbled speech, no one could understand her speech at all. She also has perioral numbness. She denies any weakness or numbness of the extremities. Her significant other noticed some gait imbalance. She states her symptoms lasted 2:15pm to about 7:00pm. She states at the end of December she had a similar episode when she is talking to a neighbor, however this episode was brief, she had seen symptoms. She followed up with her primary care provider and an echocardiogram and a CT/MRI of her brain. On this admission patient underwent CTA of head and neck showed no flow-limiting stenosis bilateral carotid bifurcations. Normal [place].EKG shows normal sinus rhythm. Rightward axis deviation. Chest x-ray showed chronic mild interstitial opacities. Telemetry reviewed patient sinus mechanism heart rate 6070s no evidence of ectopy or arrhythmia. 2-D echo performed , which revealed normal left ventricular wall thickness, EF is 55-60%. Patient denies history of heart disease, atrial fibrillation, arrhythmia, coronary artery disease, [place]. She denies any family history of heart disease. Home medications include rosuvastatin 5 mg daily, Synthroid 150 g daily, Zyrtec when necessary, Prempro one tablet daily. She is a current every day smoker. He smoked 1 pack per day for the past 30 years. She did state that she currently has decreased her smoking to half a pack per day. REVIEW OF SYSTEMS At the time of my exam: CONSTITUTIONAL: Denies fever or chills. CARDIOVASCULAR: Denies chest pain, shortness of breath, orthopnea, PND or palpitations. RESPIRATORY: Denies cough. GASTROINTESTINAL: Denies abdominal pain, diarrhea, constipation, nausea or vomiting. MUSCULOSKELETAL: Denies myalgias. NEUROLOGIC: +speech changes per HPI + lip numbness. Denies tingling, headacbe or weakness. ENDOCRINE: Denies fatigue, weight change, polydipsia or polyurina. GENITOURINARY: Denies burning, hematuria or urgency with micturation. HEMATOLOGIC: Denies history of anemia or bleeding. PHYSICAL EXAMINATION Blood pressure 130/70 heart rate 67 afebrile and maintaining oxygen saturation on room air. CONSTITUTIONAL: No apparent distress. HEENT: Head is normocephalic. Pupils are equal, round. Sclerae anicteric. Mucous membranes of the mouth are moist. No JVD. No carotid bruit. CHEST EXAMINATION: Lungs are clear to auscultation. No chest wall tenderness is noted on palpation or with deep breathing. HEART EXAMINATION: Regular rate and rhythm. S1, S2 heard. No murmurs, gallops or rub. ABDOMEN: Soft, nontender. Positive bowel sounds. EXTREMITIES: 2+ peripheral pulses, no lower extremity edema and no calf tenderness. NEUROLOGIC EXAMINATION: Patient is awake, alert and oriented x3. ASSESSMENT Slurred speech Previous history of TIA Hyperlipidemia Hypothyroidism Chronic nicotine dependence PLAN -Patient is scheduled to undergo MRI -Discussed SHIRA with patient and at bedside. Patient is agreeable to undergo procedure at this time. I have discussed the risks, benefits and alternative therapies for the above-mentioned procedure and for both sedation/analgesia, if indicated, as they pertain to this patient. The patient has indicated understanding and acceptance of the risks and procedures discussed. Questions have been answered appropriately and he is agreeable to move forward with the above-stated procedure. -Plan for SHIRA today with Dr. Gonzalez. -NPO -Smoking cessation discussed and highly recommended with patient -Patient can follow up in the office on discharge for further management as an outpatient. Nurse Practitioner note has been reviewed, I agree with a documented findings and plan of care. Patient was seen and examined. Past Medical History Past Medical History: CVA/TIA, Hyperlipidemia, Thyroid Disorder Additional Past Medical History / Comment(s): covid 4/4 History of Any Multi-Drug Resistant Organisms: None Reported Past Surgical History: Tonsillectomy, Tubal Ligation Past Anesthesia/Blood Transfusion Reactions: No Reported Reaction Past Psychological History: No Psychological Hx Reported Smoking Status: Current every day smoker Past Alcohol Use History: Occasional Past Drug Use History: None Reported - Past Family History Mother Family Medical History: CVA/TIA, Hyperlipidemia, Hypertension Father Family Medical History: COPD, Hyperlipidemia, Hypertension Medications and Allergies Home Medications Medication Instructions Recorded Confirmed Type Cetirizine HCl [Zyrtec] 10 mg PO DAILY PRN 06/23/21 06/23/21 History EPINEPHrine (Auto Inject) [Epipen] 0.3 mg IM ONCE PRN 06/23/21 06/23/21 History Estrogen,Con/M-Progest Acet 1 tab PO DAILY 06/23/21 06/23/21 History [Prempro 0.625-5 mg Tablet] Levothyroxine Sodium [Synthroid] 100 mcg PO SUMOTUTHFR 06/23/21 06/23/21 History Levothyroxine Sodium [Synthroid] 150 mcg PO WESA 06/23/21 06/23/21 History Rosuvastatin Calcium [Crestor] 5 mg PO DAILY 06/23/21 06/23/21 History Vit C/E/Zn/Coppr/Lutein/Zeaxan 1 cap PO DAILY 06/23/21 06/23/21 History [Preservision Areds 2 Softgel] Allergies Allergy/AdvReac Type Severity Reaction Status Date / Time bee venom protein (honey bee) Allergy Anaphylaxis Verified 06/23/21 15:55 Physical Exam Vitals: Vital Signs Temp Pulse Pulse Resp BP BP Pulse Ox 06/24/21 03:15 98.2 F 72 18 143/64 95 06/23/21 23:33 98.1 F 63 14 143/65 98 06/23/21 20:00 16 06/23/21 19:10 98 F 71 16 127/71 93 L 06/23/21 19:00 98.1 F 66 16 137/69 98 06/23/21 18:00 66 16 137/69 98 06/23/21 17:00 81 18 124/80 98 06/23/21 16:00 75 18 146/90 98 06/23/21 15:45 75 18 145/76 98 06/23/21 15:30 77 18 142/75 98 06/23/21 15:05 98.1 F 77 18 136/85 98 06/23/21 15:00 98.1 F 81 18 136/78 95 Intake and Output 06/23/21 06/24/21 06/24/21 22:59 06:59 14:59 Other: # Voids 2 Weight 74.389 kg 75.2 kg Results 06/23/21 15:15 06/23/21 15:15 Cardiac Enzymes 06/23/21 06/23/21 06/23/21 Range/Units 15:15 15:15 19:27 AST 22 (14-36) U/L Troponin I <0.012 <0.012 (0.000-0.034) ng/mL 06/23/21 Range/Units 22:30 AST (14-36) U/L Troponin I <0.012 (0.000-0.034) ng/mL Coagulation 06/23/21 Range/Units 15:15 PT 10.3 (9.0-12.0) sec APTT 22.2 (22.0-30.0) sec CBC 06/23/21 Range/Units 15:15 WBC 8.4 (3.8-10.6) k/uL RBC 4.14 (3.80-5.40) m/uL Hgb 14.2 (11.4-16.0) gm/dL Hct 41.5 (34.0-46.0) % Plt Count 242 (150-450) k/uL Comprehensive Metabolic Panel 06/23/21 Range/Units 15:15 Sodium 138 (137-145) mmol/L Potassium 3.6 (3.5-5.1) mmol/L Chloride 109 H (98-107) mmol/L Carbon Dioxide 20 L (22-30) mmol/L BUN 12 (7-17) mg/dL Creatinine 0.55 (0.52-1.04) mg/dL Glucose 172 H (74-99) mg/dL Calcium 8.8 (8.4-10.2) mg/dL AST 22 (14-36) U/L ALT 14 (4-34) U/L Alkaline Phosphatase 87 (38-126) U/L Total Protein 6.6 (6.3-8.2) g/dL Albumin 3.6 (3.5-5.0) g/dL Current Medications Generic Name Dose Route Start Last Admin Trade Name Freq PRN Reason Stop Dose Admin Aspirin 81 mg 06/24/21 09:00 Aspirin 81 Mg PO DAILY THOMAS Atorvastatin Calcium 80 mg 06/24/21 00:15 06/24/21 00:25 Atorvastatin 80 Mg Tab PO Not Given HS THOMAS Cyanocobalamin 100 mcg 06/24/21 09:00 Cyanocobalamin 1,000 Mcg/Ml 1 Ml Vial IM DAILY [facility] Heparin Sodium (Porcine) 5,000 unit 06/24/21 08:00 Heparin Sodium,Porcine/Pf 5,000 Unit/0.5 Ml Syringe SQ Q8HR [facility] Levothyroxine Sodium 150 mcg 06/25/21 06:30 Levothyroxine 75 Mcg Tab PO WeSa@0630 [facility] Levothyroxine Sodium 100 mcg 06/24/21 06:30 Levothyroxine 100 Mcg Tab PO SUMOTUTHFR [facility] Loratadine 10 mg 06/23/21 18:08 Loratadine 10 Mg Tab PO DAILY PRN Allergy Symptoms Multivitamins/Minerals 1 each 06/24/21 09:00 Vit A,C & P-Uuwmfw-Dwgsifju 1 Each Tab PO DAILY [facility] Naloxone HCl 0.2 mg 06/23/21 18:06 Naloxone 0.4 Mg/Ml 1 Ml Vial IV Q2M PRN Opioid Reversal Ticagrelor 90 mg 06/24/21 09:00 Ticagrelor 90 Mg Tab PO BID [facility] Intake and Output 06/23/21 06/24/21 06/24/21 22:59 06:59 14:59 Other: # Voids 2 Weight 74.389 kg 75.2 kg 06/23/21 15:15 06/23/21 15:15
--- NOTE | 2021-06-24 11:27 | P.PN ---
Subjective Progress Note Date: 06/24/21 Pts aphasia has completely resolved. No arrhythmic events on tele. No other neurological deficits including weakness or sensory loss. Pt is pending MRI Brain and SHIRA. Objective - Vital Signs Vital signs: Vital Signs Temp 98 F 06/24/21 11:24 Pulse 67 06/24/21 11:24 Resp 16 06/24/21 11:24 BP 131/73 06/24/21 11:24 Pulse Ox 95 06/24/21 11:24 Intake & Output 06/23/21 06/24/21 06/24/21 18:59 06:59 18:59 Intake Total 0 Balance 0 Weight 74.389 kg 75.2 kg Intake: Oral 0 Other: # Voids 2 - Exam Gen: awake, alert HEENT: normocephalic, atraumatic, good hearing acuity, moist mucous membranes Resp: good air exchange, breathing comfortably with no accessory muscle use, CTAB CVS: good distal perfusion x 4, RRR, no murmurs GI: soft, NTTP, ND : no SPT, no CVAT, chua catheter not present MSK: no pitting edema, no clubbing Neuro: non-focal, moving all extremities Psych: cooperative, euthymic mood - Labs CBC & Chem 7: 06/23/21 15:15 06/23/21 15:15 Labs: Abnormal Lab Results - Last 24 Hours (Table) 06/23/21 06/23/21 Range/Units 15:15 15:15 MCV 100.3 H (80.0-100.0) fL Chloride 109 H (98-107) mmol/L Carbon Dioxide 20 L (22-30) mmol/L Glucose 172 H (74-99) mg/dL Assessment and Plan Assessment: Aphasia and dysarthria, suspected TIA -Neurology recommendations appreciated -Cardiology consult, pending -Continue with aspirin and Brilinta -MRI brain, SHIRA ordered -Continue Lipitor -Fall precautions -Permissive hypertension -Cardiac monitoring -PT/OT/PHOTO EDITOR consult Vitamin B12 deficiency -Level 145 on 06/20 -Start B12 injections Chronic conditions: Hypothyroidism -Continue home meds DVT prophylaxis -Heparin subq The patient is admitted with an anticipated greater than 2 midnight stay for evaluation of TIA CODE STATUS: Full Code Discussed with: patient Anticipated discharge date: 2-[address]: Home
--- NOTE | 2021-06-24 11:41 | P.PN ---
Subjective Progress Note Date: 06/24/21 I am seeing the patient for the first time. Please refer to Dr. Gao's note for further neurological work-up. Per the patients nurse all her symptoms has resolved and she is back to baseline. Upon seeing the patient's she stated that she feels she is back to baseline. She is accompanied with her daughter and her fianc who are bedside and that her the patient's she stated that she had difficulty getting her words out yesterday and she was having slurring the speech. Currently a stated above she denies of any further neurological deficit and she feels she is back to baseline. She denies of any headache. She had similar episodes in the past and has not seen a neurologist and was only on aspirin for antiplateletes and was compliant taking the medication. She is pending to have SHIRA and MRI Brain ordered by Dr. Gao. Objective - Vital Signs Vital signs: Vital Signs Temp 98 F 06/24/21 07:48 Pulse 68 06/24/21 07:48 Resp 17 06/24/21 07:48 BP 130/70 06/24/21 07:48 Pulse Ox 95 06/24/21 07:48 Intake & Output 06/23/21 06/24/21 06/24/21 18:59 06:59 18:59 Intake Total 0 Balance 0 Weight 74.389 kg 75.2 kg Intake: Oral 0 Other: # Voids 2 - Exam GENERAL: The patient is lying in bed and is not in acute distress. NEUROLOGICAL: Higher mental function: The patient is awake, alert, oriented to self, place and time. Patient is following commands. No aphasia and no neglect. Cranial nerves: The pupils are round, equal and reactive to light and accommodation. Visual pierce are full to confrontation throughout. Extraocular movement is intact no nystagmus is noted. Facial sensation is normal to touch throughout. The facial strength is normal throughout. Hearing is normal bilaterally to hand rub. Tongue is midline and moved [id number] without any difficulty. No dysarthria is noted. Shoulder shrug is normal bilaterally. Motor: The strength is 5 over 5 throughout. Normal tone and bulk. Cerebellum: Normal finger to nose heel to estrada bilaterally. Sensation: Sensation is normal to touch throughout. Reflexes (right/left): 2+ throughout. Plantars are downgoing bilaterally. WORK-UP: CT head showed no acute process. CTA of head and neck showed no flow-limiting stenosis bilateral carotid bifurcations. Normal [place]. EKG shows normal sinus rhythm. Rightward axis deviation. Patient had a 2-D echo performed 03/25/2021, which revealed normal left ventricular wall thickness, EF is 55-60%. Normal left atrial size. Mild aortic valve sclerosis. Hemoglobin A1c 5.7 Lipid panel with cholesterol 177, LDL 81, HDL 48 and triglycerides 239. - Labs CBC & Chem 7: 06/23/21 15:15 06/23/21 15:15 Labs: Abnormal Lab Results - Last 24 Hours (Table) 06/23/21 06/23/21 Range/Units 15:15 15:15 MCV 100.3 H (80.0-100.0) fL Chloride 109 H (98-107) mmol/L Carbon Dioxide 20 L (22-30) mmol/L Glucose 172 H (74-99) mg/dL Assessment and Plan Assessment: * Transient ischemic attack difficulty getting her words out, severe slurred speech and perioral numbness and slight imbalance). On presentation had NIH stroke scale is 1, with minimal slurring. No tpa since low NIH. * Previous history of TIA 2 * Borderline blood pressure. * Tobacco use Plan: * Patient has failed aspirin. Continue Brilinta 90mg 1 tab bid and aspirin 81mg daily regimen for 21 days then after than to be only on Brilinta. Continue Lipitor 80mg qhs for secondary stroke prophylaxis. * Patient will undergo MRI of the brain to evaluate for an acute stroke. * Pending SHIRA requested by Dr. Gao. * Patient has vitamin B12 deficiency with B12 145. was started B12 injections. Recommend prior to discharge to switch over to PO 1000mcg daily. * Ordered cardiac Telemetry monitoring. * Continue Q4 hours neuro checks. * PT is consulted. I consulted [employer]. * Will defer the rest of medical management to the primary team. * Upon discharge the patient needs to follow-up with a neurologist as outpatient (gave her a paper script referral to Dr. Herb Amor over at [facility]) * For DVT prophylaxis: On subq heparin. The plan is discussed with the patient and her daughter who is at bedside. UPDATE: MRI of the brain is reported as age-related atrophic and chronic small vessel ischemic change. No acute intracranial process seen at this time. No enhancing lesion are seen. I personally reviewed the MRI there is no acute or subacute ischemic stroke. For the patient has chronic small vessel disease and seem old. Transesophageal echocardiogram: It is reported as left atrial appendage is free of clot. Interarterial septums intact. No evidence of PFO. Ejection fraction of 60%. The patient is clear from neurological stand point. Anil Katz MD Neuro-Hospitalist Time with Patient: Less than 30
--- NOTE | 2021-06-24 13:03 | MR ---
EXAMINATION TYPE: MR brain wo/w con DATE OF EXAM: 06/24/2021 11:54 AM COMPARISON: NONE HISTORY: TIA CONTRAST: Patient received 7 mL intravenous Gadavist gadolinium contrast. Multiplanar and multispin-echo imaging of the brain was performed . Pre and post contrast enhanced i mages are obtained. The ventricles, basal cisterns and sulci overlying the cerebral convexities are mildly enlarged. There is evidence of mild periventricular white matter ischemic demyelination. Remote deep white matter insults are also noted. No acute edema is seen on diffusion weighted imaging. There is no evidence for midline shift or mass effect. Acute intracranial hemorrhage or extra-axial collection is not evident. No enhancing lesions are seen. Mild mucosal thickening involving the maxillary, ethmoidal and frontal sinuses. Mastoid air cells are well-aerated. IMPRESSION: Age-related atrophic and chronic small vessel ischemic change. No acute intracranial process at this time. No enhancing lesions are seen.
[2021-06-24] MEDS ORDERED: FLUMAZENIL 0.1 MG/ML 5 ML VIAL IVP ONE (13:32)
[2021-06-24] MEDS ORDERED: fentaNYL (PF) 50 MCG/ML 2 ML AMP ONE (13:32)
[2021-06-24] MEDS ORDERED: BENZOCAINE SPRAY 1 CAN TOPICAL ONE (13:37)
[2021-06-24] MEDS ORDERED: SODIUM CHLORIDE 0.9% 500 ML 500 ML IV ONE (13:40)
[2021-06-24] MEDS ORDERED: MIDAZOLAM 2 MG/2 ML VIAL IV ONE ×2 (13:43→13:44)
[2021-06-24] MEDS: fentaNYL (PF) 50 MCG/ML 2 ML AMP IV ONE ×2 (13:43→13:45)
[2021-06-24 13:47] VITALS: PULSE 66
[2021-06-24 13:55] VITALS: BP 133/66; RESP 16
--- NOTE | 2021-06-24 14:02 | P.TEE ---
Description of Procedure(s): Procedure performed: Transesophageal Echocardiogram with color flow doppler, pulsed wave doppler and continuous wave doppler, moderate conscious sedation Moderate conscious sedation: Moderate conscious sedation was supplied with direct supervision of myself using Versed and Fentanyl. Complications: none Indications: Cryptogenic stroke History: Patient is a pleasant 71-year-old female with history of apparent prior TIA, tobacco abuse who presented secondary to slurred speech with new concern of TIA however lasting longer. Neurology evaluated patient with MRI being performed and recommendations for a SHIRA to rule out any cardiac source of emboli. PROCEDURE: After the risks, benefits and alternatives of the above mentioned procedure was explained in detail with the patient, informed consent was obtained. Patient was brought to the lab in a fasting state. Patient was given IV Versed and Fentanyl for sedation. The throat was sprayed with Hurricane to anesthetize the throat. A lubricated Omni probe was then introduced into the esophagus and stomach and multiple views were obtained. 2D echo with color flow doppler, pulsed wave doppler and continuous wave doppler was utilized. Agitated saline bubbles were injected to assess for any intra-atrial shunt. The probe was then removed. Patient tolerated the procedure well. Patient was transferred to the post procedure area in stable and satisfactory condition. FINDINGS: 1. The aortic valve is tricuspid and function normally. 2. The mitral valve appears be normal with trace regurgitation. 3. Tricuspid valve appears to be normal. 4. The interatrial septum is intact. No evidence of PFO. 5. Left atrial appendage is free of clot. 6. Left ventricular size and function appear to be normal with EF 60%
--- NOTE | 2021-06-24 16:40 | P.DS ---
Providers Date of admission: 06/23/21 18:06 Expected date of discharge: 06/24/21 Attending physician: Leslie Alcantara, Consults: 06/23/21 18:08 Consult Physician Routine Consulting Provider: Lisseth Gao Consult Reason/Comments: stroke Do you want consulting provider notified?: Yes 06/23/21 22:48 Consult Physician Routine Consulting Provider: Gunjan Vo Consult Reason/Comments: neuro wants pt to have a SHIRA Do you want consulting provider notified?: Yes, Notify in am Primary care physician: [facility] Course: Aphasia and dysarthria, suspected TIA Patient was admitted with symptoms of aphasia and dysarthria. She underwent Neurology consultation who recommended MRI Brain and SHIRA given repeat TIAs. MRI Brain was negative for CVA. SHIRA was negative for clot. Patient was started on Brillinta while here due to ASA monotherapy failure to control symptoms of TIA. Lipitor was continued. No arrhythmic events on telemetry. Patient was discharged home with prescription for Brillinta for 21 days and instructions to follow up with PCP, Neurology. Vitamin B12 deficiency -Level 145 on 06/20, was given B12 injections while in house. Started on B12 oral 1000mg daily on discharge. -Start B12 injections Chronic conditions: Hypothyroidism -Continued home meds with no changes except as above. Assessment: Gen: awake, alert HEENT: normocephalic, atraumatic, good hearing acuity, moist mucous membranes Resp: good air exchange, breathing comfortably with no accessory muscle use, CTAB CVS: good distal perfusion x 4, RRR, no murmurs GI: soft, NTTP, ND : no SPT, no CVAT, chua catheter not present MSK: no pitting edema, no clubbing Neuro: non-focal, moving all extremities Psych: cooperative, euthymic mood Patient Condition at Discharge: Good Plan - Discharge Summary Discharge Rx Participant: No New Discharge Prescriptions: New Aspirin 81 mg PO DAILY #30 chew Ticagrelor [Brilinta] 90 mg PO BID #42 tab Cyanocobalamin [Vitamin B-12] 1,000 mcg PO DAILY #30 tab Continue Levothyroxine Sodium [Synthroid] 150 mcg PO WESA Cetirizine HCl [Zyrtec] 10 mg PO DAILY PRN PRN Reason: Allergy Symptoms Levothyroxine Sodium [Synthroid] 100 mcg PO SUMOTUTHFR Vit C/E/Zn/Coppr/Lutein/Zeaxan [Preservision Areds 2 Softgel] 1 cap PO DAILY Estrogen,Con/M-Progest Acet [Prempro 0.625-5 mg Tablet] 1 tab PO DAILY Rosuvastatin Calcium [Crestor] 5 mg PO DAILY EPINEPHrine (Auto Inject) [Epipen] 0.3 mg IM ONCE PRN PRN Reason: Anaphylaxis Discharge Medication List Cetirizine HCl [Zyrtec] 10 mg PO DAILY PRN 06/23/21 [History] EPINEPHrine (Auto Inject) [Epipen] 0.3 mg IM ONCE PRN 06/23/21 [History] Estrogen,Con/M-Progest Acet [Prempro 0.625-5 mg Tablet] 1 tab PO DAILY 06/23/21 [History] Levothyroxine Sodium [Synthroid] 100 mcg PO SUMOTUTHFR 06/23/21 [History] Levothyroxine Sodium [Synthroid] 150 mcg PO WESA 06/23/21 [History] Rosuvastatin Calcium [Crestor] 5 mg PO DAILY 06/23/21 [History] Vit C/E/Zn/Coppr/Lutein/Zeaxan [Preservision Areds 2 Softgel] 1 cap PO DAILY 06/23/21 [History] Aspirin 81 mg PO DAILY #30 chew 06/24/21 [Rx] Cyanocobalamin [Vitamin B-12] 1,000 mcg PO DAILY #30 tab 06/24/21 [Rx] Ticagrelor [Brilinta] 90 mg PO BID #42 tab 06/24/21 [Rx] Follow up Appointment(s)/Referral(s): Shahzad Kaba MD [Primary Care Provider] - 1-2 days Alex Gonzalez DO [STAFF PHYSICIAN] - 2 Weeks Patient Instructions/Handouts: Transient Ischemic Attack (GEN) Discharge Disposition: HOME SELF-CARE
[2021-06-25] MEDS ORDERED: LEVOTHYROXINE 75 MCG TAB PO SCH (06:30)
[2021-06-25] MEDS ORDERED: CYANOCOBALAMIN 500 MCG TAB PO SCH (09:00)
== END 2021-06-24 16:28 | disposition home or self-care (01) | DRG 69 ==
LOC: EC 14:58 → 3SCARD 18:06
PROVIDERS: ADMIT Internal Medicine; ATTEND Internal Medicine
PROC: B246ZZ4 Ultrasonography of Right and Left Heart, Transesophageal (ICD-10-PCS; principal; 2021-06-24 16:50)
DX: G45.9 Transient cerebral ischemic attack, unspecified (principal); R47.01 Aphasia; R47.1 Dysarthria and anarthria; E78.5 Hyperlipidemia, unspecified; E03.9 Hypothyroidism, unspecified; I10 Essential (primary) hypertension; E53.8 Deficiency of other specified B group vitamins; R73.9 Hyperglycemia, unspecified; H35.30 Unspecified macular degeneration; H91.90 Unspecified hearing loss, unspecified ear; F17.210 Nicotine dependence, cigarettes, uncomplicated; Z71.6 Tobacco abuse counseling; Z79.890 Hormone replacement therapy; Z79.899 Other long term (current) drug therapy; Z86.16 Personal history of COVID-19; Z86.73 Personal history of transient ischemic attack (TIA), and cerebral infarction without residual deficits; Z90.89 Acquired absence of other organs; Z98.51 Tubal ligation status; Z87.01 Personal history of pneumonia (recurrent); Z98.890 Other specified postprocedural states; Z91.030 Bee allergy status; Z82.49 Family history of ischemic heart disease and other diseases of the circulatory system; Z83.49 Family history of other endocrine, nutritional and metabolic diseases; Z82.3 Family history of stroke; Z82.5 Family history of asthma and other chronic lower respiratory diseases
CPT/HCPCS: 36415; 70450; 70496; 70498; 70553; 71046; 80053; 84484; 85025; 85610; 85730; 93005; 93312; 93320; 93325; 99285

== ENCOUNTER → 2021-08-08 | Outpatient (CLI) | payer MEDICARE ==
--- NOTE | 2021-08-08 11:09 | BD ---
EXAMINATION TYPE: Axial Bone Density DATE OF EXAM: 08/08/2021 COMPARISON: 04/09/2017 CLINICAL HISTORY: Height: 65.5 IN Weight: 169 LBS FRAX RISK QUESTIONS: Family History (Parent hip fracture): YES MOTHER Secondary Osteoporosis: 3. Menopause before 45: AGE 44 RISK FACTORS HISTORY OF: Active: YES Diet low in dairy products/other sources of calcium: YES Postmenopausal woman: AGE 44 Take estrogen and/or progesterone medications: YES How long: SINCE AGE 44 MEDICATIONS: Thyroid Medications: YES Which medication: Synthroid How Long: SINE AGE 44 Additional Medications: SYNTHROID, PREMPRO, CRESTOR,ZYRTEC, PRESER-VISION,CLOPIDOGREL EXAM MEASUREMENTS: Bone mineral densitometry was performed using the [employer]a System. Bone mineral density as measured about the Lumbar spine is: ----- L1-L4(G/cm2): 1.201 T Score Values are as follows: ----- L2: -1.4 ----- L3: 0.6 ----- L4: 1.4 ----- L1-L4: 0.2 Bone mineral density has: Decreased -10.2% since study of: 04/09/2017 Bone mineral density about the R hip (g/cm2): 1.000 Bone mineral density about the L hip (g/cm2): 0.930 T Score values are as follows: -----R Neck: -0.3 -----L Neck: -0.8 -----R Total: 0.2 -----L Total: -0.2 Bone mineral density has: Decreased -2.6% since study of: 04/09/2017 IMPRESSION: No evidence for osteopenia or osteoporosis. NOTE: T-SCORE=SD OF THE YOUNG ADULT MEAN.
--- NOTE | 2021-08-10 09:04 | MM ---
Reason for exam: screening (asymptomatic). Last mammogram was performed 1 year ago. History: Patient is postmenopausal. Benign cyst aspiration of the left breast, 1989. 2 benign cyst aspirations of the right breast. Taking estrogen for 13 years beginning at age 48. Taking progesterone for 13 years beginning at age 48. Physical Findings: A clinical breast exam by your physician is recommended on an annual basis and results should be correlated with mammographic findings. MG 3D Screening Mammo W/Cad Bilateral CC and MLO view(s) were taken. Prior study comparison: August 05, 2020, bilateral MG 3d screening mammo w/cad. March 10, 2019, bilateral MG screening mammo w CAD. March 07, 2018, bilateral MG screening mammo w CAD. The breast tissue is heterogeneously dense. This may lower the sensitivity of mammography. No significant changes when compared with prior studies. ASSESSMENT: Benign, BI-RAD 2 RECOMMENDATION: Routine screening mammogram of both breasts in 1 year.
== END | disposition home or self-care (01) ==
LOC: RADMAMWWP 07:54
PROVIDERS: ATTEND Obstetrics & Gynecology
DX: Z12.31 Encounter for screening mammogram for malignant neoplasm of breast (principal); N95.1 Menopausal and female climacteric states; Z80.3 Family history of malignant neoplasm of breast
CPT/HCPCS: 77063; 77067; 77080

== ENCOUNTER → 2021-10-24 | Outpatient (CLI) | payer MEDICARE ==
[2021-10-25 01:54] LABS: Folate, Serum 9.9 ng/mL (4.40-31.00)
[2021-10-25 12:17] LABS: APTT 38 Sec(s) (<43); Dilute Russell Viper Venom 35 Sec(s) (<44)
== END | disposition home or self-care (01) ==
LOC: LABWHC1 16:02
PROVIDERS: ATTEND Internal Medicine
DX: Z86.73 Personal history of transient ischemic attack (TIA), and cerebral infarction without residual deficits (principal)
CPT/HCPCS: 36415; 81240; 81241; 82607; 82746; 83090; 85303; 85613; 85730

== ENCOUNTER → 2022-06-01 | Outpatient (CLI) | payer MEDICARE ==
[2022-06-01 19:24] LABS: African American GFR (CKD) 106.9 (60.0-200.0); BUN/Creat Ratio 20.23 Ratio (12.00-20.00); Blood Urea Nitrogen 12.2 mg/dL (9.0-27.0); Calcium 9.3 mg/dL (8.7-10.3); Carbon Dioxide 24.5 mmol/L (20.0-27.5); Chloride 105 mmol/L (96-109); Glucose 98 mg/dL (70-110); LDL Cholesterol,Calculated 84.2 mg/dL (0.0-131.0); Non-African American GFR(CKD) 92.2 (60.0-200.0); Potassium 4.3 mmol/L (3.5-5.5); Sodium 141 mmol/L (135-145)
== END | disposition home or self-care (01) ==
LOC: LABWHC1 11:06
PROVIDERS: ATTEND Internal Medicine
DX: E03.9 Hypothyroidism, unspecified (principal); R73.03 Prediabetes; D51.9 Vitamin B12 deficiency anemia, unspecified; E55.9 Vitamin D deficiency, unspecified; E78.2 Mixed hyperlipidemia
CPT/HCPCS: 36415; 80048; 80061; 82306; 82607; 83036; 84439; 84443

== ENCOUNTER → 2022-07-28 | Outpatient (CLI) | payer MEDICARE ==
--- NOTE | 2022-07-28 15:56 | XR ---
EXAMINATION TYPE: XR Hip Complete RT DATE OF EXAM: 07/28/2022 COMPARISON: None HISTORY: Sciatica TECHNIQUE: 2 view right hip FINDINGS: Femoral head articulates with the acetabulum. Joint space is preserved. No fracture or disl ocation is evident. Follow-up can be performed as clinically indicated IMPRESSION: 1. No acute osseous abnormality right hip
--- NOTE | 2022-07-28 15:58 | XR ---
EXAMINATION TYPE: XR lumbar spine 2 or 3V DATE OF EXAM: 07/28/2022 COMPARISON: None HISTORY: Sciatica right side TECHNIQUE: 3 view lumbar spine FINDINGS: There are 5 lumbar-type vertebral bodies. Pedicles are intact. Mild spondylosis present. Th ere is loss of disc height at L3-4 L4-5 and L5-S1. Remaining disc heights are preserved. Vertebral nicolasa dy heights are preserved. Posterior endplate spurring is present at L4-5. Consider additional evaluat ion with MRI IMPRESSION: 1. Posterior endplate spurring L4-5. 2. Loss of disc height at L3-4, L4-5, and L5-S1. 3. Consider additional evaluation with MRI.
== END | disposition home or self-care (01) ==
LOC: RADXRMAIN 15:27
PROVIDERS: ATTEND Internal Medicine Geriatric Medicine
DX: M54.31 Sciatica, right side (principal); M25.551 Pain in right hip; M77.9 Enthesopathy, unspecified
CPT/HCPCS: 72100; 73502

== ENCOUNTER → 2022-08-10 | Outpatient (CLI) | payer MEDICARE ==
--- NOTE | 2022-08-11 09:44 | MM ---
Reason for Exam: Screening (asymptomatic). Last screening mammogram was performed 12 month(s) ago. Patient History: Menarche at age 14. First Full-Term at age 24. Postmenopausal. Estrogen, starting at age 48 for 13 years. Progesterone, starting at age 48 for 13 years. Benign Cyst Aspiration on the right side. Benign Cyst Aspiration on the right side. 1990, Benign Cyst Aspiration on the left side. Risk Values: Marly 5 year model risk: 1.5%. NCI Lifetime model risk: 4.5%. Prior Study Comparison: 08/05/2020 Bilateral Screening Mammogram, [facility]. 08/12/2020 Right Diagnostic Mammogram, [facility]. 08/08/2021 Bilateral Screening Mammogram, [facility]. Tissue Density: The breast tissue is heterogeneously dense. This may lower the sensitivity of mammography. Findings: Analyzed By CAD. There are numerous scattered and loosely small benign-appearing round calcifications bilaterally. New Group of indistinct calcifications in the right breast posterior upper outer aspect warrants further workup. Overall Assessment: Incomplete: need additional imaging evaluation, BI-RAD 0 Management: Special View Mammogram of the right breast. Return for additional spot magnification and true lateral view right breast. Electronically signed and approved by: Jermaine Oropeza M.D.
== END | disposition home or self-care (01) ==
LOC: RADMAMWWP 08:46
PROVIDERS: ATTEND Obstetrics & Gynecology
DX: Z12.31 Encounter for screening mammogram for malignant neoplasm of breast (principal)
CPT/HCPCS: 77063; 77067

== ENCOUNTER → 2022-08-15 | Outpatient (CLI) | payer MEDICARE ==
--- NOTE | 2022-08-15 11:16 | MM ---
Reason for Exam: Additional evaluation requested from abnormal screening. Last screening mammogram was performed less than 1 month ago. Patient History: Menarche at age 14. First Full-Term at age 24. Postmenopausal. Patient has history of breast feeding. Estrogen, starting at age 48 for 13 years. Progesterone, starting at age 48 for 13 years. Benign Cyst Aspiration on the right side. Benign Cyst Aspiration on the right side. 1990, Benign Cyst Aspiration on the left side. Risk Values: Marly 5 year model risk: 1.5%. NCI Lifetime model risk: 4.5%. Prior Study Comparison: 03/07/2018 Bilateral Screening Mammogram, [facility]. 03/10/2019 Bilateral Screening Mammogram, [facility]. 08/05/2020 Bilateral Screening Mammogram, [facility]. 08/12/2020 Right Diagnostic Mammogram, [facility]. 08/08/2021 Bilateral Screening Mammogram, [facility]. 08/10/2022 Bilateral MG 3D screening mammo w/cad, [facility]. Tissue Density: Right: There are scattered fibroglandular densities. Findings: Analyzed By CAD. Grouped calcifications in the right breast posterior depth lateral upper quadrant demonstrate minimal fine pleomorphic morphology. Overall Assessment: Suspicious, BI-RAD 4 Management: Stereotactic Core Biopsy of the right breast. A clinical breast exam by your physician is recommended on an annual basis and results should be correlated with mammographic findings. This exam should not preclude additional follow-up of suspicious palpable abnormalities. Results were given to the patient verbally at the time of exam. Electronically signed and approved by: Art Pappas DO
== END | disposition home or self-care (01) ==
LOC: RADMAMWWP 10:16
PROVIDERS: ATTEND Obstetrics & Gynecology
DX: R92.8 Other abnormal and inconclusive findings on diagnostic imaging of breast (principal)
CPT/HCPCS: 77065; G0279; 77061

== ENCOUNTER → 2022-08-31 | Day surgery (SDC) | payer MEDICARE ==
[2022-08-31 07:25] VITALS: RESP 16; TEMP 98.2
[2022-08-31 09:31] VITALS: BP 120/78; PULSE 86
--- NOTE | 2022-09-06 09:46 | MM ---
Risk Values: Marly 5 year model risk: 1.5%. NCI Lifetime model risk: 4.5%. Prior Study Comparison: 08/08/2021 Bilateral Screening Mammogram, [facility]. 08/10/2022 Bilateral MG 3D screening mammo w/cad, [facility]. 08/15/2022 Right MG 3D work up w/cad RT, [facility]. Pathology Description: Marker Left Behind. Approach: CC FA Needle Type: Eviva Cores: 8 Skin Nicks: 1 Gauge: 9 no problems The procedure of stereotactic guided core biopsy was explained to the patient. Benefits, alternatives, and risks were discussed. An informed consent was then obtained. The shortness pathway for biopsy was chosen. Shortness pathway was superior approach. I performed the procedure. A vacuum assisted biopsy gun was used to obtain multiple core samples. The patient tolerated the procedure well without any immediate complication. The patient was kept in the radiology department for short stay after the procedure and then discharged home in stable condition. Targeted calcifications are identified in specimen mammogram. Post biopsy mammogram shows the clip to appear in satisfactory position relative to the targeted area of concern on the preprocedure images. Impression: SUCCESSFUL, UNCOMPLICATED STEREOTACTIC GUIDED CORE BIOPSY OF AREA OF CONCERN IN THE right BREAST. Pathology Results: Result: Benign, Fibrocystic change. RIGHT BREAST, STEREOTACTIC NEEDLE CORE BIOPSY: Fibrocystic changes including fibroadenomatoid hyperplasia with calcifications. Overall Assessment: Benign Management: Diagnostic Mammogram of the right breast in 6 months. Electronically signed and approved by: Je Blair D.O.
== END ==
LOC: RADMAMWWP 07:10
PROVIDERS: ATTEND Surgery
DX: N60.31 Fibrosclerosis of right breast (principal); R92.1 Mammographic calcification found on diagnostic imaging of breast
CPT/HCPCS: 88305; 19081; A4648; J2001

== ENCOUNTER → 2022-10-20 | Outpatient (CLI) | payer MEDICARE ==
[2022-10-20 15:11] LABS: Chol/HDL Ratio 3.17 Ratio; LDL Cholesterol,Calculated 50.4 mg/dL (0.0-131.0)
== END | disposition home or self-care (01) ==
LOC: LABWHC1 09:15
PROVIDERS: ATTEND Internal Medicine
DX: E03.9 Hypothyroidism, unspecified (principal); E78.2 Mixed hyperlipidemia; R73.03 Prediabetes
CPT/HCPCS: 36415; 80061; 83036; 84439; 84443

== ENCOUNTER → 2023-03-02 | Outpatient (CLI) | payer MEDICARE ==
--- NOTE | 2023-03-02 13:14 | MM ---
Reason for Exam: Follow-up at short interval from prior study. Last screening mammogram was performed 7 month(s) ago. Patient History: Menarche at age 14. First Full-Term at age 24. Postmenopausal. Patient has history of breast feeding. Estrogen, starting at age 48 for 13 years. Progesterone, starting at age 48 for 13 years. 08/31/2022, Benign MG stereo VAD BX RT on the right side. Benign Cyst Aspiration on the right side. Benign Cyst Aspiration on the right side. 1989, Benign Cyst Aspiration on the left side. Risk Values: Marly 5 year model risk: 1.8%. NCI Lifetime model risk: 5.1%. Prior Study Comparison: 08/08/2021 Bilateral Screening Mammogram, [facility]. 08/10/2022 Bilateral MG 3D screening mammo w/cad, [facility]. 08/15/2022 Right MG 3D work up w/cad RT, [facility]. Tissue Density: Right: The breast tissue is heterogeneously dense. This may lower the sensitivity of mammography. Findings: Analyzed By CAD. Biopsy clip from previous stereotactic biopsy within the right breast. Stable benign-appearing calcifications within the right breast. No new suspicious mass or architectural distortion within the right breast. Overall Assessment: Benign, BI-RAD 2 Management: Screening Mammogram of both breasts in 5 months. A clinical breast exam by your physician is recommended on an annual basis and results should be correlated with mammographic findings. This exam should not preclude additional follow-up of suspicious palpable abnormalities. Results were given to the patient verbally at the time of exam. Electronically signed and approved by: Je Blair D.O.
== END | disposition home or self-care (01) ==
LOC: RADMAMWWP 12:54
PROVIDERS: ATTEND Surgery
DX: R92.8 Other abnormal and inconclusive findings on diagnostic imaging of breast (principal); Z78.0 Asymptomatic menopausal state
CPT/HCPCS: 77065; G0279; 77061

== ENCOUNTER → 2023-08-13 | Outpatient (CLI) | payer MEDICARE ==
--- NOTE | 2023-08-14 14:31 | MM ---
Reason for Exam: Screening (asymptomatic). Last screening mammogram was performed 12 month(s) ago. Patient History: Menarche at age 14. First Full-Term at age 24. Postmenopausal. Patient has history of breast feeding. Estrogen, starting at age 48 for 13 years. Progesterone, starting at age 48 for 13 years. 08/31/2022, Benign MG stereo VAD BX RT on the right side. Benign Cyst Aspiration on the right side. Benign Cyst Aspiration on the right side. 1989, Benign Cyst Aspiration on the left side. Risk Values: Marly 5 year model risk: 1.8%. NCI Lifetime model risk: 5.1%. Prior Study Comparison: 08/10/2022 Bilateral MG 3D screening mammo w/cad, [facility]. 08/15/2022 Right MG 3D work up w/cad RT, [facility]. 03/02/2023 Right MG 3D diag mammo w/cad RT, [facility]. Tissue Density: The breast tissue is heterogeneously dense. This may lower the sensitivity of mammography. Findings: Analyzed By CAD. Pattern appears symmetrical and stable. No significant interval change is evident. Scattered benign-appearing calcifications are present. A core marker is within the right breast. No suspicious groups of microcalcifications, spiculated or lobular masses, architectural distortion or other secondary signs of malignancy are mammographically apparent. Overall Assessment: Benign, BI-RAD 2 Management: Screening Mammogram of both breasts in 1 year. A negative mammogram report should not preclude additional follow up of suspicious palpable abnormalities. Patient should continue monthly self breast exam. A clinical breast exam by your physician is recommended on an annual basis and results should be correlated with mammographic findings. Electronically signed and approved by: Harshad Tipton D.O. Radiologis
== END | disposition home or self-care (01) ==
LOC: RADMAMWWP 09:39
PROVIDERS: ATTEND Obstetrics & Gynecology
DX: Z12.31 Encounter for screening mammogram for malignant neoplasm of breast (principal); Z78.0 Asymptomatic menopausal state
CPT/HCPCS: 77063; 77067

== ENCOUNTER → 2023-10-09 | Outpatient (CLI) | payer MEDICARE ==
[2023-10-09 15:49] LABS: Chol/HDL Ratio 2.94 Ratio; LDL Cholesterol,Calculated 69.7 mg/dL (0.0-131.0); T4, Free (Free Thyroxine) 1.38 ng/dL (0.80-1.80)
== END | disposition home or self-care (01) ==
LOC: LABWHC1 10:05
PROVIDERS: ATTEND Internal Medicine
DX: E03.9 Hypothyroidism, unspecified (principal); E78.2 Mixed hyperlipidemia; E55.9 Vitamin D deficiency, unspecified; R73.03 Prediabetes
CPT/HCPCS: 36415; 80061; 82306; 83036; 84439; 84443

== ENCOUNTER → 2024-04-07 | Outpatient (CLI) | payer MEDICARE ==
[2024-04-07 15:02] LABS: Chol/HDL Ratio 2.77 Ratio; LDL Cholesterol,Calculated 69.1 mg/dL (0.0-131.0); T4, Free (Free Thyroxine) 1.32 ng/dL (0.80-1.80)
== END | disposition home or self-care (01) ==
LOC: LABWHC1 10:01
PROVIDERS: ATTEND Internal Medicine
DX: E03.9 Hypothyroidism, unspecified (principal); E78.2 Mixed hyperlipidemia; R73.03 Prediabetes
CPT/HCPCS: 36415; 80061; 83036; 84439; 84443

== ENCOUNTER → 2024-07-25 | Outpatient (CLI) | payer MEDICARE ==
[2024-07-25 15:59] LABS: Chol/HDL Ratio 3.05 Ratio
[2024-07-25 16:00] LABS: ALT 20 U/L (8-44); AST 21 U/L (13-35); Albumin 4.3 g/dL (3.8-4.9); Albumin/Globulin Ratio 1.54 Ratio (1.60-3.17); Alkaline Phosphatase 128 U/L (41-126); BUN/Creat Ratio 17.62 Ratio (12.00-20.00); Blood Urea Nitrogen 14.1 mg/dL (9.0-27.0); Calcium 9.5 mg/dL (8.7-10.3); Carbon Dioxide 23.7 mmol/L (21.6-31.8); Chloride 105 mmol/L (96-109); Globulin 2.8 g/dL (1.6-3.3); Glucose 106 mg/dL (70-110); LDL Cholesterol,Calculated 60.1 mg/dL (0.0-131.0); Potassium 4.2 mmol/L (3.5-5.5); Sodium 141 mmol/L (135-145); T4, Free (Free Thyroxine) 1.37 ng/dL (0.80-1.80); Total Bilirubin 0.4 mg/dL (0.3-1.2); Total Protein 7.1 g/dL (6.2-8.2)
[2024-07-25 16:26] LABS: Basophils # (A) 0.07 X 10*3/uL (0.00-0.10); Basophils % (A) 0.9 %; Eosinophils # (A) 0.25 X 10*3/uL (0.04-0.35); Eosinophils % (A) 3.2 %; HCT 45.4 % (37.2-46.3); HGB 14.8 g/dL (12.0-15.0); Lymphocytes # (A) 1.41 X 10*3/uL (0.90-5.00); Lymphocytes % (A) 18.1 %; MCH 31.8 pg (27.0-32.0); MCHC 32.6 g/dL (32.0-37.0); MCV 97.4 FL (80.0-97.0); Mean Platelet Volume 10.5 FL (9.5-12.2); Monocytes # (A) 0.81 X 10*3/uL (0.20-1.00); Monocytes % (A) 10.4 %; NRBC Per 100 WBC 0 X 10*3/uL (0.00-0.01); Neutrophils # (A) 5.23 X 10*3/uL (1.80-7.70); Neutrophils % (A) 67.1 %; Platelet Count 257 X 10*3/uL (140-440); RBC 4.66 X 10*6/uL (4.10-5.20); RDW 13.8 % (11.5-14.5); WBC 7.79 X 10*3/uL (4.50-10.00)
== END ==
LOC: LABWHC1 09:31
PROVIDERS: ATTEND Internal Medicine Geriatric Medicine
DX: Z00.00 Encounter for general adult medical examination without abnormal findings (principal); E78.2 Mixed hyperlipidemia; R73.03 Prediabetes; E03.9 Hypothyroidism, unspecified
CPT/HCPCS: 36415; 80053; 80061; 82043; 82570; 83036; 84439; 84443; 85025

== ENCOUNTER → 2024-10-07 | Outpatient (CLI) | payer MEDICARE ==
[2024-10-07 16:33] LABS: T4, Free (Free Thyroxine) 1.36 ng/dL (0.80-1.80)
== END | disposition home or self-care (01) ==
LOC: LABWHC1 09:35
PROVIDERS: ATTEND Internal Medicine
DX: E03.9 Hypothyroidism, unspecified (principal)
CPT/HCPCS: 36415; 84439; 84443

== ENCOUNTER → 2024-10-28 | Outpatient (CLI) | payer MEDICARE ==
--- NOTE | 2024-10-29 17:28 | MM ---
Reason for Exam: Screening (asymptomatic). Last mammogram was performed 1 year(s) and 3 month(s) ago. Patient History: Menarche at age 14. First Full-Term at age 24. Postmenopausal. Patient has history of breast feeding. Estrogen, starting at age 48 for 13 years. Progesterone, starting at age 48 for 13 years. 08/31/2022, Benign MG stereo VAD BX RT on the right side. Benign Cyst Aspiration on the right side. Benign Cyst Aspiration on the right side. 1989, Benign Cyst Aspiration on the left side. Risk Values: Marly 5 year model risk: 1.9%. NCI Lifetime model risk: 4.8%. Prior Study Comparison: 08/15/2022 Right MG 3D work up w/cad RT, [facility]. 03/02/2023 Right MG 3D diag mammo w/cad RT, [facility]. 08/13/2023 Bilateral MG 3D screening mammo w/cad, [facility]. Tissue Density: The breasts are heterogeneously dense, which may obscure small masses. Findings: Analyzed By CAD. Unchanged bilateral areas of asymmetric density. Regional/grouped calcifications posterior upper outer quadrant left breast appear to be increasing. Further magnification views recommended. Microclip right breast from prior biopsy. Otherwise, no significant change. Overall Assessment: Incomplete: need additional imaging evaluation, BI-RAD 0 Management: Special View Mammogram of the left breast. [facility] will attempt to contact patient to return for supplemental views. [facility], , 10/29/2024 5:25 PM. Electronically signed and approved by: Yolanda Mcgraw M.D. Radiologist
== END | disposition home or self-care (01) ==
LOC: RADMAMWWP 15:16
PROVIDERS: ATTEND Internal Medicine Geriatric Medicine
DX: Z12.31 Encounter for screening mammogram for malignant neoplasm of breast (principal); Z78.0 Asymptomatic menopausal state; R92.333 Mammographic heterogeneous density, bilateral breasts
CPT/HCPCS: 77063; 77067

== ENCOUNTER → 2024-10-29 | Outpatient (CLI) | payer MEDICARE ==
[2024-10-29 15:12] LABS: Basophils # (A) 0.05 X 10*3/uL (0.00-0.10); Basophils % (A) 0.9 %; Eosinophils # (A) 0.09 X 10*3/uL (0.04-0.35); Eosinophils % (A) 1.6 %; HCT 44.9 % (37.2-46.3); HGB 14.6 g/dL (12.0-15.0); Lymphocytes # (A) 1.35 X 10*3/uL (0.90-5.00); Lymphocytes % (A) 24.2 %; MCH 32.3 pg (27.0-32.0); MCHC 32.5 g/dL (32.0-37.0); MCV 99.3 FL (80.0-97.0); Mean Platelet Volume 9.6 FL (9.5-12.2); Monocytes # (A) 0.62 X 10*3/uL (0.20-1.00); Monocytes % (A) 11.1 %; NRBC Per 100 WBC 0 X 10*3/uL (0.00-0.01); Neutrophils # (A) 3.46 X 10*3/uL (1.80-7.70); Neutrophils % (A) 61.8 %; Platelet Count 236 X 10*3/uL (140-440); RBC 4.52 X 10*6/uL (4.10-5.20); RDW 14.6 % (11.5-14.5); WBC 5.59 X 10*3/uL (4.50-10.00)
[2024-10-29 15:36] LABS: ALT 37 U/L (8-44); AST 31 U/L (13-35); Albumin 4.1 g/dL (3.8-4.9); Albumin/Globulin Ratio 1.52 Ratio (1.60-3.17); Alkaline Phosphatase 122 U/L (41-126); BUN/Creat Ratio 16.29 Ratio (12.00-20.00); Blood Urea Nitrogen 11.4 mg/dL (9.0-27.0); Calcium 9.5 mg/dL (8.7-10.3); Carbon Dioxide 24.8 mmol/L (21.6-31.8); Chloride 105 mmol/L (96-109); Globulin 2.7 g/dL (1.6-3.3); Glucose 98 mg/dL (70-110); LDL Cholesterol,Calculated 79.9 mg/dL (0.0-131.0); Potassium 4.4 mmol/L (3.5-5.5); Sodium 142 mmol/L (135-145); Total Bilirubin 0.3 mg/dL (0.3-1.2); Total Protein 6.8 g/dL (6.2-8.2)
[2024-10-29 17:47] LABS: Microalbumin Creatinine Ratio <13 mg/g Cr (0-30); Urine Creatinine 93.3 mg/dL (28.0-217.0)
== END | disposition home or self-care (01) ==
LOC: LABWHC1 09:13
PROVIDERS: ATTEND Internal Medicine Geriatric Medicine
DX: E11.65 Type 2 diabetes mellitus with hyperglycemia (principal)
CPT/HCPCS: 36415; 80053; 80061; 82043; 82570; 83036; 85025

== ENCOUNTER → 2024-11-10 | Outpatient (CLI) | payer MEDICARE ==
--- NOTE | 2024-11-11 09:10 | MM ---
Reason for Exam: Follow-up at short interval from prior study. Last screening mammogram was performed less than 1 month ago. Patient History: Menarche at age 14. First Full-Term at age 24. Postmenopausal. Patient has history of breast feeding. Estrogen, starting at age 48 for 13 years. Progesterone, starting at age 48 for 13 years. 08/31/2022, Benign MG stereo VAD BX RT on the right side. Benign Cyst Aspiration on the right side. Benign Cyst Aspiration on the right side. 1989, Benign Cyst Aspiration on the left side. Risk Values: Marly 5 year model risk: 1.9%. NCI Lifetime model risk: 4.8%. Prior Study Comparison: 03/02/2023 Right MG 3D diag mammo w/cad RT, [facility]. 08/13/2023 Bilateral MG 3D screening mammo w/cad, [facility]. 10/28/2024 Bilateral MG 3D screening mammo w/cad, [facility]. Tissue Density: Left: The breasts are heterogeneously dense, which may obscure small masses. Findings: Analyzed By CAD. No suspicious clusters of microcalcifications seen. Overall Assessment: Benign, BI-RAD 2 Management: Screening Mammogram of both breasts in 1 year. . Results were given to the patient verbally at the time of exam. Patient should continue monthly self-breast exams. A clinical breast exam by your physician is recommended on an annual basis. This exam should not preclude additional follow-up of suspicious palpable abnormalities. Note on Marly scores and lifetime risk: 1. A Marly score greater than 3% is considered moderate risk. If this is the case, consider specialist referral to assess eligibility for a risk reducing agent. 2. If overall lifetime risk for the development of breast cancer is 20% or higher, the patient may qualify for future screening with alternating mammogram and breast MRI. [facility], , 11/11/2024 9:07 AM. Electronically signed and approved by: Efe Esteves M.D. Radiologis
== END | disposition home or self-care (01) ==
LOC: RADMAMWWP 14:13
PROVIDERS: ATTEND Internal Medicine Geriatric Medicine
DX: R92.8 Other abnormal and inconclusive findings on diagnostic imaging of breast (principal); Z78.0 Asymptomatic menopausal state; R92.332 Mammographic heterogeneous density, left breast
CPT/HCPCS: 77061; 77065

== ENCOUNTER → 2025-06-17 | Outpatient (CLI) | payer MEDICARE ==
[2025-06-17 15:50] LABS: Basophils # (A) 0.06 X 10*3/uL (0.00-0.10); Basophils % (A) 0.8 %; Eosinophils # (A) 0.08 X 10*3/uL (0.04-0.35); Eosinophils % (A) 1.1 %; HCT 45.9 % (37.2-46.3); HGB 14.8 g/dL (12.0-15.0); Immature Grans, Automated 0.40 %; Lymphocytes # (A) 1.40 X 10*3/uL (0.90-5.00); Lymphocytes % (A) 18.8 %; MCH 31.9 pg (27.0-32.0); MCHC 32.2 g/dL (32.0-37.0); MCV 98.9 FL (80.0-97.0); Monocytes # (A) 0.74 X 10*3/uL (0.20-1.00); Monocytes % (A) 10.0 %; NRBC Per 100 WBC 0 X 10*3/uL (0.00-0.01); Neutrophils # (A) 5.12 X 10*3/uL (1.80-7.70); Neutrophils % (A) 68.9 %; Platelet Count 266 X 10*3/uL (140-440); RBC 4.64 X 10*6/uL (4.10-5.20); RDW 13.1 % (11.5-14.5); WBC 7.43 X 10*3/uL (4.50-10.00)
[2025-06-17 16:06] LABS: ALT 31 U/L (8-44); AST 31 U/L (13-35); Albumin 4.3 g/dL (3.8-4.9); Albumin/Globulin Ratio 1.43 Ratio (1.60-3.17); Alkaline Phosphatase 103 U/L (41-126); Anion Gap 11.80 mmol/L (4.00-12.00); BUN/Creat Ratio 24.56 Ratio (12.00-20.00); Blood Urea Nitrogen 22.1 mg/dL (9.0-27.0); Calcium 9.7 mg/dL (8.7-10.3); Carbon Dioxide 25.2 mmol/L (21.6-31.8); Chloride 102 mmol/L (96-109); Cholesterol 155.00 mg/dL (0.00-200.00); Globulin 3.0 g/dL (1.6-3.3); Glucose 92 mg/dL (70-110); HDL Cholesterol 62.90 mg/dL (40.00-60.00); LDL Cholesterol,Calculated 78.6 mg/dL (0.0-131.0); Potassium 5.1 mmol/L (3.5-5.5); Sodium 139 mmol/L (135-145); T4, Free (Free Thyroxine) 1.18 ng/dL (0.80-1.80); Total Protein 7.3 g/dL (6.2-8.2); Triglycerides 67.50 mg/dL (0.00-149.00); VLDL Calculation 13.50 mg/dL (5.00-40.00)
== END | disposition home or self-care (01) ==
LOC: LABWHC1 12:06
PROVIDERS: ATTEND Internal Medicine Geriatric Medicine
DX: Z03.89 Encounter for observation for other suspected diseases and conditions ruled out (principal); E03.9 Hypothyroidism, unspecified; E11.65 Type 2 diabetes mellitus with hyperglycemia; E78.2 Mixed hyperlipidemia; M81.0 Age-related osteoporosis without current pathological fracture
CPT/HCPCS: 36415; 80053; 80061; 82043; 82570; 82652; 83036; 84439; 84443; 85025